=== PATIENT | male | born 1980 | race Caucasian/White ===

== ENCOUNTER 2018-01-20 15:38 | Inpatient (IN) ==
[2018-01-20] MEDS ORDERED: 0.9 % Sodium Chloride 1,000 ML IVC ONE ×2 (15:58→17:08)
[2018-01-20] MEDS ORDERED: Ondansetron 4 MG/2 ML VIAL IVP ONE (15:58)
[2018-01-20] MEDS ORDERED: *HR* FentaNYL (PF) 100 MCG/2 ML VIAL IVP ONE (16:15)
--- NOTE | 2018-01-20 16:15 | Emergency Department Note ---
Disposition Clinical Impression: Hyperglycemia, Hyperkalemia, Acute kidney injury DKA (diabetic ketoacidoses) Qualifiers: Diabetes mellitus complication detail: without coma Pharyngitis Qualifiers: Pharyngitis/tonsillitis etiology: unspecified etiology Qualified Code(s): J02.9 - Acute pharyngitis, unspecified Disposition: Admitted As Inpatient Condition: Serious Referrals: NONE,PCP [Primary Care Provider] - Forms: ED Satisfaction Letter General Adult HPI - General Chief complaint: ED Nausea/Vomiting/Diarrhea Stated complaint: Sore throat, vomiting, hyperglycemia Time Seen by Provider: 01/20/18 15:46 Source: patient Limitations: no limitations Nursing Notes Reviewed: Yes Vital Signs Reviewed: Yes - History of Present Illness HPI Narrative: 37-year-old male with a past medical history of diabetes (on metformin) and hypertension. He reports having 3-4 days of sore throat. He found that orange juice helped significantly with the pain in his throat and so he drank 3 gallons over the last 48 hours. He now reports that his blood glucose is reading "high". He has not noticed that he is urinating more than normal. He is having no difficulty breathing or chest pain. He is having difficulty keeping anything down due to his nausea and vomiting. He is not having any abdominal pain. No fever. Radiation: non-radiation Pain Severity: severe Pain Scale: 8 Consistency: constant Improves with: nothing Worsens with: nothing Associated symptoms: Reports: denies other symptoms Treatments Prior to Arrival: none - Related Data Home Medications Medication Instructions Recorded Confirmed Lisinopril [Zestril] 20 mg PO DAILY 03/21/17 03/21/17 metFORMIN 100 mg PO BID 03/21/17 03/21/17 Previous Rx's Medication Instructions Recorded Ibuprofen [Motrin] 600 mg PO Q6HR PRN #20 tab 03/21/17 Allergies Allergy/AdvReac Type Severity Reaction Status Date / Time No Known Allergies Allergy Verified 01/20/18 15:53 All systems ED: reviewed and negative except as stated. Constitutional: Denies: fever ENT ED: Reports: throat pain Cardiovascular: Denies: chest pain Respiratory: Denies: cough Gastrointestinal: Reports: nausea, vomiting. Denies: abdominal pain, diarrhea Genitourinary: Denies: dysuria Musculoskeletal: Denies: back pain Integumentary: Denies: rash Endocrine: Reports: fatigue Past Medical History - Past Medical History Medical history: Reports: diabetes, hypertension Psychiatric history: Reports: no psych history - Social History Smoking Status: Never smoker Smokeless Tobacco Status: No Alcohol use: Reports: occasionally Drug use: Reports: none Physical Exam - General Limitations: no limitations General appearance: alert - Head Head exam: atraumatic - Eye Eye exam: Present: normal appearance, PERRL - ENT ENT exam: other (Diffuse erythematous oropharynx. No exudate. No uvular deviation. No muffled voice) - Neck Neck exam: Present: normal inspection, trachea midline - Chest Chest inspection: Present: normal inspection - Respiratory Respiratory exam: Present: normal lung sounds bilaterally. Absent: respiratory distress - Cardiovascular Cardiovascular exam: Present: normal rhythm, tachycardia - Abdominal Exam Abdominal exam: Present: soft, Non-Tender - Extremities Exam Extremities exam: Present: normal inspection - Neurological Exam Neurological exam: Present: alert, oriented X3 - Skin Skin exam: Present: warm, dry Course Course Narrative: Glucose came back very elevated as stated his potassium. EKG was obtained which does not show any acute changes however I decided to give him calcium gluconate due to the level of the potassium elevation. His creatinine is 4 and will hopefully rebound with fluid administration. His pH also indicates he is acidotic and there is significant amount of ketones which gives the diagnosis of DKA. He received 2 L of normal saline and was placed on 200 and also an hour maintenance and an insulin drip was started. CT scan was obtained of the abdomen and pelvis and the neck to rule out pancreatic pseudocyst as his lipase is elevated, and paratonsillar abscess. Clinically there is not an abscess, but this was obtained due to the critical nature of the patient as this is essential to be treated to fix his DKA if present. Sodium is quite low that this is due to a significant elevation of his glucose and is a pseudohyponatremia. Negative CT of abdomen and neck. Signed out to the night team for final admission pending call from hospitalist. Vital Signs Temperature 97.6 F 01/20/18 15:39 Pulse Rate 117 01/20/18 15:39 Respiratory Rate 22 01/20/18 15:39 Blood Pressure 116/72 01/20/18 15:39 O2 Sat by Pulse Oximetry 100 01/20/18 15:39 Temperature 97.6 F 01/20/18 15:57 Pulse Rate 101 01/20/18 17:00 Respiratory Rate 20 01/20/18 17:00 Blood Pressure 97/41 01/20/18 17:00 O2 Sat by Pulse Oximetry 100 01/20/18 17:00 Oxygen Delivery Oxygen Delivery Room Air Medical Decision Making - Medical Records Medical records reviewed: Yes I reviewed the patient's medical records. - Lab Data Lab results reviewed: Yes I reviewed the patient's lab results. Result diagrams: 01/20/18 15:58 01/20/18 15:59 Lab Results 01/20/18 01/20/18 01/20/18 Range/Units 15:44 15:45 15:58 WBC 23.9 H (4.3-11.1) K/mcL RBC 4.77 (4.19-5.50) M/mcL Hgb 14.3 (12.9-16.9) g/dL Hct 48.0 (37.5-50.1) % MCV 100.6 H (83.0-100.0) fL MCH 30.0 (28.0-33.3) pg MCHC 29.8 L (31.6-35.5) g/dL RDW 13.7 (11.5-14.5) % Plt Count 635 H (140-400) K/mcL MPV 10.8 (9.4-12.4) fL Immature Gran % 1.7 (0-4) % Seg Neutrophils % 88.1 % Lymphocytes % 4.0 % Monocytes % 5.8 % Eosinophils % 0.0 % Basophils % 0.4 % Neutrophils # 21.1 H (1.6-8.9) K/mcL Lymphocytes # 1.0 (0.6-4.6) K/mcL Monocytes # 1.4 H (0.0-1.3) K/mcL Eosinophils # 0.0 (0.0-0.6) K/mcL Basophils # 0.1 (0.0-0.2) K/mcL Platelet Estimate Marked Increase H (Normal) VBG pH (7.32-7.42) pH Units VBG pCO2 (41-51) mmHg VBG pO2 (25-50) mmHg VBG HCO3 (21-27) mEq/L Sodium (136-145) mEq/L Potassium (3.5-5.1) mEq/L Chloride (98-107) mEq/L Carbon Dioxide (23-29) mEq/L BUN (6-20) mg/dL Creatinine (0.70-1.30) mg/dL Est GFR ( Amer) (> 60) Est GFR (Non-Af Amer) (> 60) BUN/Creatinine Ratio (6-26) Glucose (70-105) mg/dL POC Glucose > 600 H* > 600 H* (70-99) mg/dL Est Mean Plasma Glucose mg/dl Hemoglobin A1c ( - 5.6) % Calculated Osmolality (280-300) Calcium (8.6-10.3) mg/dL Total Bilirubin (0.3-1.0) mg/dL Direct Bilirubin (0.0-0.2) mg/dL Indirect Bilirubin (0.0-1.2) mg/dL AST (13-39) Units/L ALT (7-52) Units/L Alkaline Phosphatase (34-104) Units/L Serum Total Protein (6.4-8.9) g/dL Albumin (3.5-5.7) g/dL Globulin (2.4-3.5) g/dL Albumin/Globulin Ratio (1.1-2.2) Lipase (11-82) Units/L Beta-Hydroxybutyric Acd (0.02-0.27) mmol/L Urine Color (Yellow) Urine Clarity (Clear) Urine pH (5.0-8.0) pH Units Ur Specific [place] (1.010-1.025) Urine Protein (Neg-Trace) mg/dL Urine Glucose (UA) (Normal) mg/dL Urine Ketones (Negative) mg/dL Urine Blood (Negative) Urine Nitrite (Negative) Urine Bilirubin (Negative) Urine Urobilinogen (Normal) mg/dL Ur Leukocyte Esterase (Negative) Urine Microscopic RBC (0-3) per hpf Urine Microscopic WBC (0-3) per hpf Ur Squamous Epith Cells (None-Few) per lpf Urine Bacteria (None-Few) per hpf Hyaline Casts (None-Few) per lpf Ur Culture Indicated? (NO) Person Notif of Crit 01/20/18 01/20/18 01/20/18 Range/Units 15:59 16:27 16:43 WBC (4.3-11.1) K/mcL RBC (4.19-5.50) M/mcL Hgb (12.9-16.9) g/dL Hct (37.5-50.1) % MCV (83.0-100.0) fL MCH (28.0-33.3) pg MCHC (31.6-35.5) g/dL RDW (11.5-14.5) % Plt Count (140-400) K/mcL MPV (9.4-12.4) fL Immature Gran % (0-4) % Seg Neutrophils % % Lymphocytes % % Monocytes % % Eosinophils % % Basophils % % Neutrophils # (1.6-8.9) K/mcL Lymphocytes # (0.6-4.6) K/mcL Monocytes # (0.0-1.3) K/mcL Eosinophils # (0.0-0.6) K/mcL Basophils # (0.0-0.2) K/mcL Platelet Estimate (Normal) VBG pH (7.32-7.42) pH Units VBG pCO2 (41-51) mmHg VBG pO2 (25-50) mmHg VBG HCO3 (21-27) mEq/L Sodium 115 L* (136-145) mEq/L Potassium 7.4 H* (3.5-5.1) mEq/L Chloride 72 L (98-107) mEq/L Carbon Dioxide 7 L* (23-29) mEq/L BUN 74 H (6-20) mg/dL Creatinine 4.00 H (0.70-1.30) mg/dL Est GFR ( Amer) 21 L (> 60) Est GFR (Non-Af Amer) 17 L (> 60) BUN/Creatinine Ratio 19 (6-26) Glucose 1642 H* (70-105) mg/dL POC Glucose (70-99) mg/dL Est Mean Plasma Glucose mg/dl Hemoglobin A1c ( - 5.6) % Calculated Osmolality 348 H (280-300) Calcium 9.4 (8.6-10.3) mg/dL Total Bilirubin 0.6 (0.3-1.0) mg/dL Direct Bilirubin 0.1 (0.0-0.2) mg/dL Indirect Bilirubin 0.5 (0.0-1.2) mg/dL AST 8 L (13-39) Units/L ALT 18 (7-52) Units/L Alkaline Phosphatase 93 (34-104) Units/L Serum Total Protein 7.2 (6.4-8.9) g/dL Albumin 4.2 (3.5-5.7) g/dL Globulin 3.0 (2.4-3.5) g/dL Albumin/Globulin Ratio 1.4 (1.1-2.2) Lipase 323 H (11-82) Units/L Beta-Hydroxybutyric Acd > 2.00 H (0.02-0.27) mmol/L Urine Color Yellow (Yellow) Urine Clarity Clear (Clear) Urine pH 5.5 (5.0-8.0) pH Units Ur Specific [place] 1.028 H (1.010-1.025) Urine Protein 30 H (Neg-Trace) mg/dL Urine Glucose (UA) >=1000 H (Normal) mg/dL Urine Ketones 40 H (Negative) mg/dL Urine Blood Trace H (Negative) Urine Nitrite Negative (Negative) Urine Bilirubin Negative (Negative) Urine Urobilinogen Normal (Normal) mg/dL Ur Leukocyte Esterase Negative (Negative) Urine Microscopic RBC 0-3 (0-3) per hpf Urine Microscopic WBC 5-15 H (0-3) per hpf Ur Squamous Epith Cells Moderate H (None-Few) per lpf Urine Bacteria None Seen (None-Few) per hpf Hyaline Casts None Seen (None-Few) per lpf Ur Culture Indicated? NO (NO) Person Notif of Crit 01/20/18 01/20/18 Range/Units 17:02 17:49 WBC (4.3-11.1) K/mcL RBC (4.19-5.50) M/mcL Hgb (12.9-16.9) g/dL Hct (37.5-50.1) % MCV (83.0-100.0) fL MCH (28.0-33.3) pg MCHC (31.6-35.5) g/dL RDW (11.5-14.5) % Plt Count (140-400) K/mcL MPV (9.4-12.4) fL Immature Gran % (0-4) % Seg Neutrophils % % Lymphocytes % % Monocytes % % Eosinophils % % Basophils % % Neutrophils # (1.6-8.9) K/mcL Lymphocytes # (0.6-4.6) K/mcL Monocytes # (0.0-1.3) K/mcL Eosinophils # (0.0-0.6) K/mcL Basophils # (0.0-0.2) K/mcL Platelet Estimate (Normal) VBG pH 7.06 L* (7.32-7.42) pH Units VBG pCO2 29 L (41-51) mmHg VBG pO2 67 H (25-50) mmHg VBG HCO3 8 L (21-27) mEq/L Sodium (136-145) mEq/L Potassium (3.5-5.1) mEq/L Chloride (98-107) mEq/L Carbon Dioxide (23-29) mEq/L BUN (6-20) mg/dL Creatinine (0.70-1.30) mg/dL Est GFR ( Amer) (> 60) Est GFR (Non-Af Amer) (> 60) BUN/Creatinine Ratio (6-26) Glucose (70-105) mg/dL POC Glucose (70-99) mg/dL Est Mean Plasma Glucose 329 mg/dl Hemoglobin A1c 13.1 H ( - 5.6) % Calculated Osmolality (280-300) Calcium (8.6-10.3) mg/dL Total Bilirubin (0.3-1.0) mg/dL Direct Bilirubin (0.0-0.2) mg/dL Indirect Bilirubin (0.0-1.2) mg/dL AST (13-39) Units/L ALT (7-52) Units/L Alkaline Phosphatase (34-104) Units/L Serum Total Protein (6.4-8.9) g/dL Albumin (3.5-5.7) g/dL Globulin (2.4-3.5) g/dL Albumin/Globulin Ratio (1.1-2.2) Lipase (11-82) Units/L Beta-Hydroxybutyric Acd (0.02-0.27) mmol/L Urine Color (Yellow) Urine Clarity (Clear) Urine pH (5.0-8.0) pH Units Ur Specific [place] (1.010-1.025) Urine Protein (Neg-Trace) mg/dL Urine Glucose (UA) (Normal) mg/dL Urine Ketones (Negative) mg/dL Urine Blood (Negative) Urine Nitrite (Negative) Urine Bilirubin (Negative) Urine Urobilinogen (Normal) mg/dL Ur Leukocyte Esterase (Negative) Urine Microscopic RBC (0-3) per hpf Urine Microscopic WBC (0-3) per hpf Ur Squamous Epith Cells (None-Few) per lpf Urine Bacteria (None-Few) per hpf Hyaline Casts (None-Few) per lpf Ur Culture Indicated? (NO) Person Notif of Crit Dr. Olivarez - Radiology Data Radiology results reviewed: Yes I reviewed the patient's radiology results. - EKG Data EKG #1 EKG attestation: Yes I reviewed and interpreted this EKG. EKG shows normal: sinus rhythm Rate: normal Rhythm: NSR Interpretation: other (nonspecific ekg. No ST elevation or t wave changes.)
[2018-01-20] MEDS ORDERED: Isovue-370 500 ML INFUS..BTL IV ONE (16:42)
[2018-01-20 16:56] LABS: Bacteria,Urine None Seen per hpf (None-Few); Bilirubin,Urine Negative (Negative); Blood,Urine Trace (Negative); Clarity,Urine Clear (Clear); Color,Urine Yellow (Yellow); Glucose,Urine (UA) >=1000 mg/dL (Normal); Hyaline Casts,Urine None Seen per lpf (None-Few); Ketones,Urine 40 mg/dL (Negative); Leukocyte Esterase,Urine Negative (Negative); Nitrite,Urine Negative (Negative); PH,Urine 5.5 pH Units (5.0-8.0); Protein,Urine 30 mg/dL (Neg-Trace); RBC,Urine 0-3 per hpf (0-3); Specific Gravity,Urine 1.028 (1.010-1.025); Squamous Epithelial Cell,Urine Moderate per lpf (None-Few); Urobilinogen,Urine Normal (Normal)
--- NOTE | 2018-01-20 16:59 | Emergency Department Note ---
Disposition Clinical Impression: Hyperglycemia Disposition: Still a Patient Forms: ED Satisfaction Letter General Adult HPI - General Chief complaint: ED Nausea/Vomiting/Diarrhea Stated complaint: Sore throat, vomiting, hyperglycemia Time Seen by Provider: 01/20/18 15:46 Source: patient Limitations: no limitations - History of Present Illness Pain Scale: 8 Improves with: nothing Worsens with: nothing Associated symptoms: Reports: denies other symptoms Treatments Prior to Arrival: none - Related Data Home Medications Medication Instructions Recorded Confirmed Lisinopril [Zestril] 20 mg PO DAILY 03/21/17 03/21/17 metFORMIN 100 mg PO BID 03/21/17 03/21/17 Previous Rx's Medication Instructions Recorded Ibuprofen [Motrin] 600 mg PO Q6HR PRN #20 tab 03/21/17 Allergies Allergy/AdvReac Type Severity Reaction Status Date / Time No Known Allergies Allergy Verified 01/20/18 15:53 Constitutional: Denies: fever ENT ED: Reports: throat pain Cardiovascular: Denies: chest pain Respiratory: Denies: cough Gastrointestinal: Reports: nausea, vomiting. Denies: abdominal pain, diarrhea Genitourinary: Denies: dysuria Musculoskeletal: Denies: back pain Integumentary: Denies: rash Endocrine: Reports: fatigue Past Medical History - Past Medical History Medical history: Reports: diabetes, hypertension Psychiatric history: Reports: no psych history - Social History Smoking Status: Never smoker Smokeless Tobacco Status: No Alcohol use: Reports: occasionally Drug use: Reports: none Physical Exam - General Limitations: no limitations General appearance: alert Course Vital Signs Temperature 97.6 F 01/20/18 15:39 Pulse Rate 117 01/20/18 15:39 Respiratory Rate 22 01/20/18 15:39 Blood Pressure 116/72 01/20/18 15:39 O2 Sat by Pulse Oximetry 100 01/20/18 15:39 Temperature 97.6 F 01/20/18 15:57 Pulse Rate 97 01/20/18 16:30 Respiratory Rate 20 01/20/18 16:30 Blood Pressure 110/66 01/20/18 16:30 O2 Sat by Pulse Oximetry 99 01/20/18 16:30 Oxygen Delivery Oxygen Delivery Room Air Medical Decision Making - Lab Data Lab Results 01/20/18 01/20/18 Range/Units 15:44 15:45 POC Glucose > 600 H* > 600 H* (70-99) mg/dL Attestation Statement - Attestation Attestation: I examined this patient and my medical decision-making was reviewed with the Resident Physician. I agree with the documented findings, disposition and treatment plan as described except to the extent set forth below. 37 year old male presents to the ED with complanits of sore throat and diabetes which is controlled with metfomrin and has been dealing with a sore throat and most recently drank 3 galloons of orange juice in the past three days. PAtinet states that it has been getting wrose and has been experincing dificulty with swallowing but is otherwise able to tolerte his own secretions.WE will do a DKA workup.
[2018-01-20 17:03] LABS: Basophils # 0.1 K/mcL (0.0-0.2); Basophils % 0.4 %; Hemoglobin 14.3 g/dL (12.9-16.9); Immature Granulocytes % 1.7 % (0-4); Mean Corpuscular HGB Conc 29.8 g/dL (31.6-35.5); Mean Corpuscular Volume 100.6 fL (83.0-100.0); Mean Platelet Volume 10.8 fL (9.4-12.4); Monocytes # 1.4 K/mcL (0.0-1.3); Monocytes % 5.8 %; Neutrophils # 21.1 K/mcL (1.6-8.9); Platelet Count 635 K/mcL (140-400); Red Blood Count 4.77 M/mcL (4.19-5.50); Red Cell Distribution Width 13.7 % (11.5-14.5); Segmented Neutrophils % 88.1 %
[2018-01-20 17:10] LABS: VBG HCO3 8 mEq/L (21-27); VBG PCO2 29 mmHg (41-51); VBG PH 7.06 pH Units (7.32-7.42); VBG PO2 67 mmHg (25-50)
[2018-01-20 17:37] LABS: Albumin 4.2 g/dL (3.5-5.7); Albumin/Globulin Ratio 1.4 (1.1-2.2); Bilirubin,Direct 0.1 mg/dL (0.0-0.2); Bilirubin,Indirect 0.5 mg/dL (0.0-1.2); Bilirubin,Total 0.6 mg/dL (0.3-1.0); Calcium 9.4 mg/dL (8.6-10.3); Total Protein 7.2 g/dL (6.4-8.9)
[2018-01-20 17:38] LABS: Platelet Estimate Marked Increase (Normal)
[2018-01-20] MEDS ORDERED: Magic Mouthwash 10 ML UD Cup PO ONE (17:48)
[2018-01-20] MEDS ORDERED: *HR* Dextrose 50 % in Water (Syg) 50 ML SYRINGE IVP PRN ×2 (17:49→20:28)
[2018-01-20 18:14] LABS: Estimated Average Glucose 329 mg/dl; Hemoglobin A1C 13.1 %
[2018-01-20] MEDS: 0.9 % Sodium Chloride 1,000 ML IVC SCH ×4 (19:13→23:46)
[2018-01-20] MEDS: Insulin Human Regular 100 UNIT in 0.9 % Sodium Chloride 100 ML IVC SCH (19:16)
[2018-01-20] MEDS ORDERED: *HR* OxyCODONE/APAP 5/325 TABLET PO ONE (19:23)
--- NOTE | 2018-01-20 19:27 | Emergency Department Note ---
START Narrative - START START: 19:20 - Received patient in sign-out from Dr. Marino. This is a 37 year-old male with history of IDDM. who presents with ST. He drank an extraordinary amount of orange juice over the past couple of days, as it apparently made his throat feel vic. He presented with profound hyperglycemia and was found to be in DKA. He has received 2 liters of saline and is on an insulin drip. Reviewed case with Dr. Vanessa. He requests a repeat BMP to make sure potassium is trending down, which has been ordered, and he has accepted patient for admission the ICU.
--- NOTE | 2018-01-20 20:23 | Internal Med History&Physical ---
Date of Encounter: 01/20/18 Time of Encounter: 19:45 Internal Medicine - H&P: HPI Chief complaint: Sore throat, malaise, nausea and vomiting Admitted From: Emergency Dept Plans for Post Hospital Care: Home History of present illness: Mr. Najera is a 37 year old male patient with a history of diabetes mellitus who presented to the ER with complaints of sore throat along with nausea. He has been feeling sick for about 2-3 days now and was drinking a lot of orange juice and soda at this with his throat. He has been having increased urination and has also been feeling nauseated. He denies any fever or chills. Denies any hematemesis. No chest pain or palpitations. He has only had one episode of diabetic ketoacidosis before that and that was when he was diagnosed with diabetes. He reports that he has been compliant with his medication regimen for diabetes and his A1c last checked couple of months back was 7%. He has not previously been diagnosed with any kidney disease related to his diabetes. Past Med Surg Social Fam HX - Past Medical History Attestation: Yes The following information was validated with the patient. Source: patient Medical history: diabetes, hypertension Psychiatric history: no psych history - Social History Smoking Status: Never smoker Smokeless Tobacco Status: No Alcohol use: occasionally Drug use: none - Additional Family History Additional family history: Reviewed and found to be noncontributory at this time Internal Medicine - H&P: Meds Lisinopril [Zestril] 20 mg PO DAILY 01/20/18 [History] metFORMIN [Glucophage] 500 mg PO BID 01/20/18 [History] 3 Allergy/AdvReac Type Severity Reaction Status Date / Time No Known Allergies Allergy Verified 01/20/18 15:53 All Systems PM: A 10-system review of systems was performed and is negative for pertinent findings except as documented above in the HPI. - Constitutional Constitutional: malaise, no chills, no fever(s), no night sweats - EENT Eyes: no change in vision, no discharge, no pain, no photophobia Ears: no ear discharge, no ear pain, no tinnitus Nose, mouth and throat: sore throat, no dysphagia, no nasal discharge, no neck pain - Cardiovascular Cardiovascular ROS IM: no chest pain, no diaphoresis, no dyspnea, no lightheadedness, no palpitations, no syncope - Respiratory Respiratory: no cough, no dyspnea, no wheezing, no excessive phlegm production - Gastrointestinal Gastrointestinal: no abdominal pain, no diarrhea, no hematemesis, no hematochezia, no melena, no nausea, no vomiting - Musculoskeletal Musculoskeletal ROS IM: no numbness, no tingling - Integumentary Integumentary IM: no rash, no unusual bruising - Neurological Neurological ROS: no confusion, no convulsions, no focal weakness, no numbness, no tingling, no tremor(s) - Hematologic/Lymphatic Hematologic/Lymphatic: no easy bruising - Constitutional Vitals: Temp Pulse Resp BP Pulse Ox 97.6 F 104 20 110/74 100 01/20/18 15:57 01/20/18 19:20 01/20/18 20:08 01/20/18 20:08 01/20/18 19:20 General appearance: Present: cooperative, mild distress, A&O X 3, pleasant, obese, answers questions appropriately - Eye Eye exam: Present: EOMI, PERRL, conjuntiva pink, sclera anicteric - ENT ENT exam: Present: mucous membranes moist - Neck Neck exam general surgery: Present: supple, trachea midline. Absent: lymphadenopathy - Respiratory Respiratory exam: Present: CTAB. Absent: accessory muscle use, rales, rhonchi, wheezes - Cardiovascular Cardiovascular exam: Present: RRR, +S1, +S2. Absent: diastolic murmur, gallop, rubs, systolic murmur - GI/Abdominal GI/Abdominal exam: Present: normal bowel sounds, soft, no peritoneal signs. Absent: distended, tenderness - Extremities Exam Extremities exam: Present: warm, radial pulses palpable and symmetrical. Absent : calf tenderness, cyanotic, pedal edema - Neurological Exam Neurological exam: Present: CN II-XII intact, oriented X3, no focal deficits. Absent: facial droop, speech deficit - Skin Skin exam: Present: dry, intact Internal Med - H&P Results - Labs CBC & Chem 7: 01/20/18 15:58 01/20/18 15:59 - Assessment and plan (1) DKA (diabetic ketoacidoses) Current Visit: Yes Status: Acute Assessment and plan: Patient with severe diabetic ketoacidosis. We will admit to ICU. Place patient on DKA protocol with IV insulin, IV fluids. Monitor basic panel closely. High risk for complications. Likely related to increased consumption of orange juice with underlying pharyngitis Qualifiers: Diabetes mellitus type: type 2 Diabetes mellitus complication detail: without coma Qualified Code(s): E11.10 - Type 2 diabetes mellitus with ketoacidosis without coma (2) Acute kidney injury Current Visit: Yes Status: Acute Assessment and plan: Severe acute kidney injury. Patient may have underlying chronic kidney disease based on his lab work. We will monitor renal function closely closely. Monitor input and output. If renal function does not improve we will consult nephrology. Aggressive hydration. (3) Hyperkalemia Current Visit: Yes Status: Acute Assessment and plan: severe hyperkalemia. Potassium 7.4 initially. Will recheck values. Aggressive management for DKA. (4) Pharyngitis Current Visit: Yes Status: Acute Assessment and plan: Strep screen negative. We will place patient on Unasyn for now given his leukocytosis. Qualifiers: Pharyngitis/tonsillitis etiology: unspecified etiology Qualified Code(s): J02.9 - Acute pharyngitis, unspecified - Time Spent With Patient Total time spent is greater than 50% in coordination of care (as documented) at patient's floor/unit and/or counseling patient:
[2018-01-20] MEDS ORDERED: D5% in 0.45% NACL 1,000 ML IVC PRN (20:28)
[2018-01-20] MEDS ORDERED: D5% in 0.45% NACL w KCl 20 MEQ/1,000 ML MLS IVC PRN (20:28)
[2018-01-20] MEDS ORDERED: Naloxone 0.4 MG/ML INJ IVP PRN (20:28)
[2018-01-20] MEDS ORDERED: *HR* HYDROcodone/Acet 5/325 mg TABLET PO PRN (20:28)
[2018-01-20] MEDS ORDERED: Albuterol 2.5 MG/3 ML NEBULIZER IH ONE (20:37)
[2018-01-20 20:40] LABS: Calcium 8.9 mg/dL (8.6-10.3); Potassium 7.5 mEq/L (3.5-5.1)
[2018-01-20] MEDS ORDERED: Ondansetron 4 MG/2 ML VIAL ONE (21:00)
[2018-01-20] MEDS: Ondansetron 4 MG/2 ML VIAL IVP PRN (21:07)
[2018-01-20 21:30] LABS: Potassium 7.4 mEq/L (3.5-5.1)
[2018-01-20 21:41] LABS: ABG Base Excess -16 mEq/L (-2 to 3); ABG HCO3 9 mEq/L (21-27); ABG Oxygen Saturation 85 % (95-98); ABG PCO2 20 mmHg (35-45); ABG PH 7.26 pH Units (7.32-7.45); ABG PO2 56 mmHg (85-104); ABG TCO2 10 mEq/L (20-26)
[2018-01-20 22:36] LABS: Calcium 8.9 mg/dL (8.6-10.3)
[2018-01-20] MEDS ORDERED: 0.9 % Sodium Chloride w KCl 20 MEQ/1,000 ML MLS IVC ONE (22:51)
--- NOTE | 2018-01-20 22:53 | Procedure Note ---
Date of procedure: 01/20/18 Pre-op diagnosis: hypotension Post-op diagnosis: same Procedure: RIJ CVC under ultrasound guidance Anesthesia: local Was there an account management assistant present: No Estimated blood loss (cc): 1 Specimen: none Pathology: none sent Condition: stable Disposition: ICU Procedures - Central Line Placement Right IJ Central Line Inserted*: Yes Central Line Catheter Replacement*: No Central Line Insertion: emergent Consent Obtained: verbal consent, written consent Procedural Pause: verify patient name and date of , timeout performed per policy, myrna and assess the site, assemble equipment and verify supplies, perform hand hygiene Patient Placed on Monitor/Pulse Ox: Yes During the Procedure: clinician is wearing sterile gloves, cap, mask,& gown during insertion, sterile field and sterile technique are maintained, patient's face is covered with drape or mask and wearing a cap, everyone in room is wearing a mask Central Line Prep: Chlorhexidine scrub Prep the Procedure Site: apply chloraprep to the skin using a back and forth scrubbing motion, apply chloraprep for 30 seconds (upper body), 1-2 min ( femoral sites), allow prep to dry, drape the patient with a full body drape Local Anesthetic: lidocaine 1% Amount of anesthesia used (mL): 3 Ultrasound Used for Placement: Yes Central Line Lumen Inserted: triple Post Procedure: sutured in place, good blood return, all ports aspirated, flushed, capped, sterile dressing applied, guide wire removed and visualized, dressing is dated Post Procedure X-Ray: tip of catheter in good position, no pneumothorax seen Patient Tolerated Procedure: well, no complications Complications: none, catheter malposition (a 20 cm CVC was accidently placed, will exchange for 16 cm with guidewire exchange) Name of Clinician Inserting Central Line: Saroj Feldman DO Clinician Assisting/Completing Checklist: Dr. Vanessa Date: 01/20/18 Time: 22:52 Additional Comments: RIJ CVC placed under ultrasound guidance for persistent hypotension despite aggressive fluid resuscitation. Informed consent obtained by patient. He was alert awake and oriented. Performed under the direct supervision of Dr. Vanessa.
[2018-01-20] MEDS: 0.9 % Sodium Chloride w KCl 20 MEQ/1,000 ML MLS IVC SCH (22:59)
--- NOTE | 2018-01-20 23:21 | Procedure Note ---
Date of procedure: 01/20/18 Pre-op diagnosis: hypotension Post-op diagnosis: same Procedure: RIJ CVC guidewire exchange for 16 cm triple lumen catheter Was there an speech therapy assistant present: No Estimated blood loss (cc): 0 Specimen: none Pathology: none sent Condition: stable Disposition: ICU Procedures - Central Line Placement Right IJ Central Line Inserted*: Yes Central Line Catheter Replacement*: Yes Central Line Insertion: emergent Consent Obtained: written consent Procedural Pause: verify patient name and date of , timeout performed per policy, myrna and assess the site, assemble equipment and verify supplies, perform hand hygiene Patient Placed on Monitor/Pulse Ox: Yes During the Procedure: clinician is wearing sterile gloves, cap, mask,& gown during insertion, sterile field and sterile technique are maintained, patient's face is covered with drape or mask and wearing a cap, everyone in room is wearing a mask Central Line Prep: Chlorhexidine scrub Prep the Procedure Site: apply chloraprep to the skin using a back and forth scrubbing motion, apply chloraprep for 30 seconds (upper body), 1-2 min ( femoral sites), allow prep to dry, drape the patient with a full body drape Ultrasound Used for Placement: No Central Line Lumen Inserted: triple Post Procedure: sutured in place, good blood return, all ports aspirated, flushed, capped, sterile dressing applied, guide wire removed and visualized, dressing is dated Post Procedure X-Ray: tip of catheter in good position, no pneumothorax seen Patient Tolerated Procedure: well, no complications Complications: none Name of Clinician Inserting Central Line: Saroj Feldman DO Clinician Assisting/Completing Checklist: Dr. Vanessa Date: 01/20/18 Time: 23:16 Additional Comments: Initial CVC was 20 cm triple lumen catheter, after review of CXR it was discovered that incorrect length CVC catheter was placed and guidewire exchange performed. Area was cleaned with chloroprep including the existing triple lumen catheter and under drape and sterile technique the catheter was grasp near the circular biopatch and cut with scissor. Catheter was maintained and the guidewire was placed through lumen until catheter successfully removed while maintaining control of triple lumen catheter. Once catheter was removed replacement 16 cm CVC catheter was exchanged without difficulty. It was sutured into placed with biopatch. Supervised by attending Dr. Vanessa. Patient tolerated procedure well.
[2018-01-20] MEDS ORDERED: Chloraseptic Spray 177 ML BOTTLE MM PRN (23:27)
[2018-01-20] MEDS: Acetaminophen 325 MG TABLET PO PRN (23:31)
[2018-01-20] MEDS: Norepinephrine 4 MG in D5% in Water 250 ML IVC SCH (23:33)
--- NOTE | 2018-01-20 23:42 | Event Note ---
Date of Encounter: 01/20/18 Time of Encounter: 23:00 Patient's blood pressure has been low despite aggressive IV hydration. Likely is due to circulatory shock due to continued acidosis. Patient will need IV pressors. As such central line was placed by resident physician, Saroj Feldman under my supervision. Patient was started on levophed. Blood glucose improving slowly. Potassium levels are also improving. Continue IV fluids.
[2018-01-21] MEDS: Ampicillin/Sulbactam 1,500 MG in 0.9 % Sodium Chloride Mini Bag 100 ML IVPB SCH ×3 (00:20→11:10)
[2018-01-21] MEDS: Insulin Human Regular 100 UNIT in 0.9 % Sodium Chloride 100 ML IVC SCH (00:20)
[2018-01-21] MEDS: 0.9 % Sodium Chloride 1,000 ML IVC SCH (00:35)
[2018-01-21 00:42] LABS: Calcium 8.8 mg/dL (8.6-10.3); Potassium 4.2 mEq/L (3.5-5.1)
[2018-01-21] MEDS: 0.9 % Sodium Chloride w KCl 20 MEQ/1,000 ML MLS IVC SCH ×11 (01:25→19:37)
[2018-01-21] MEDS: 0.45 % Sodium Chloride w/KCl 20 MEQ/1,000 ML MLS IVC SCH ×6 (01:25→20:59)
[2018-01-21 02:04] LABS: Calcium 9.1 mg/dL (8.6-10.3); Potassium 4.5 mEq/L (3.5-5.1)
[2018-01-21 03:18] LABS: Hematocrit 38.8 % (37.5-50.1); Hemoglobin 13.8 g/dL (12.9-16.9); Mean Corpuscular HGB Conc 35.6 g/dL (31.6-35.5); Platelet Count 541 K/mcL (140-400); Red Cell Distribution Width 13.3 % (11.5-14.5)
[2018-01-21 03:22] LABS: Mean Corpuscular Volume 84.3 fL (83.0-100.0)
[2018-01-21 03:40] LABS: Calcium 9.3 mg/dL (8.6-10.3); Potassium 4.4 mEq/L (3.5-5.1)
[2018-01-21] MEDS: *HR* Heparin 5,000 UNIT/ML VIAL SQ SCH ×2 (05:08→17:40)
[2018-01-21] MEDS: Norepinephrine 4 MG in D5% in Water 250 ML IVC SCH (05:56)
[2018-01-21] MEDS: Ondansetron 4 MG/2 ML VIAL IVP PRN ×2 (06:15→12:36)
[2018-01-21 06:41] LABS: Calcium 9.5 mg/dL (8.6-10.3); Potassium 4.6 mEq/L (3.5-5.1)
[2018-01-21] MEDS ORDERED: Ringers Solution, Lactated 3,000 ML ONE (07:42)
[2018-01-21] MEDS ORDERED: Ringers Solution, Lactated 3,000 ML IVC ONE (08:07)
--- NOTE | 2018-01-21 09:37 | Pulmonology Consult Note ---
<Soy Ramey - Last Filed: 01/21/18 10:36> Date of Encounter: 01/21/18 Time of Encounter: 07:30 Assessment and Plan (1) DKA (diabetic ketoacidoses) Current Visit: Yes Status: Acute 1. Patient in DKA, initially with serum ketones > 2, pH 7.09 with AG 36 with BG 1642. 2. His gap is now 16 and blood glucose was 328 3. Continue insulin drip at 0.1 units per kilogram per hour until anion gap and acidosis had resolved 4. Patient remains significantly volume depleted and is 2.5 L negative 5. We will give a 3 L LR fluid bolus and continue the patient on LR at 250 mL per hour 6. Continue to monitor electrolytes closely Q2 hr per protocol Qualifiers: Diabetes mellitus type: type 2 Diabetes mellitus complication detail: without coma Qualified Code(s): E11.10 - Type 2 diabetes mellitus with ketoacidosis without coma (2) Hyperkalemia Current Visit: Yes Status: Acute 1. Potassium has normalized now, but still suspecting that this is a pseudohyperkalemia due to the patient's DKA and overall volume depleted state. 2. We will change the patient to LR to continue replacing his potassium and to minimize the acidotic effects of normal saline. 3. Continue to trend K (3) Pharyngitis Current Visit: Yes Status: Acute 1. Complaining of a sore throat, strep negative. 2. Primary team started on Unasyn due to leukocytosis, which we are suspecting is likely a stress reaction from his DKA 3. No evidence of infection - discontinue antibiotics Qualifiers: Pharyngitis/tonsillitis etiology: unspecified etiology Qualified Code(s): J02.9 - Acute pharyngitis, unspecified (4) Acute kidney injury Current Visit: Yes Status: Acute 1. Most recent creatinine 1.99, which is improved from 4.0 upon arrival 2. Suspecting his EKATERINA is due to dehydration and significant volume depletion from his DKA 3. Continue to trend with IV fluid resuscitation. (5) DVT prophylaxis Current Visit: Yes Status: Acute 1. Continue subcutaneous heparin History of Present Illness Consult date: 01/21/18 Requesting physician: Nicolas Vanessa Reason for consult: other (hypotension/DKA) Chief complaint: hypotension/DKA/acidosis History of present illness: Patient presented in DKA and was acidotic with a pH of 7.09. Was on the DKA pathway and became hypotensive requiring central line placement and vasopressors. Consulted for further management of his hypotension and DKA. Past Med Surg Social Fam HX - Past Medical History Medical history: diabetes, hypertension Additional medical history: Drug abuse- recovering Psychiatric history: no psych history - Past Surgical History Additional surgical history: Lung biopsy. - Social History Smoking Status: Never smoker Smokeless Tobacco Status: No Alcohol use: occasionally Drug use: none Medications and Allergies Lisinopril [Zestril] 20 mg PO DAILY 01/20/18 [History] metFORMIN [Glucophage] 500 mg PO BID 01/20/18 [History] 3 Allergy/AdvReac Type Severity Reaction Status Date / Time No Known Allergies Allergy Verified 01/20/18 15:53 All Systems: The remainder of the systems were reviewed and are negative - Constitutional Constitutional: no fever(s) - EENT Nose, mouth and throat: no dry mouth, no headache(s) - Cardiovascular Cardiovascular: no chest pain - Respiratory Respiratory: no dyspnea - Gastrointestinal Gastrointestinal: nausea, no abdominal pain, no cramping, no melena - Genitourinary Genitourinary: no dysuria - Musculoskeletal Musculoskeletal: no muscle weakness - Neurological Neurological: no dizziness Physical Examination Vital Signs: Vital Signs, Last 4 Hours Temp Pulse Resp BP Pulse Ox 01/21/18 08:53 100 12 116/68 97 01/21/18 08:35 97.9 F 01/21/18 07:57 110 01/21/18 07:55 97.9 F 101 15 112/51 97 01/21/18 07:00 100 14 121/52 95 01/21/18 06:00 106 16 127/73 100 General appearance: no acute distress Eyes: nonicteric ENT: oropharynx dry Neck: supple Effort: normal Inspection: normal Cardiovascular: regular rate and rhythm Gastrointestinal: normoactive bowel sounds, non-distended Integumentary: normal Extremities: no cyanosis, no edema, no clubbing Musculoskeletal: no deformities, ROM normal normal mental status, non-focal exam mood appropriate, affect normal Results - Laboratory Findings CBC and BMP: 01/21/18 03:05 01/21/18 05:03 ABG ABG pH 7.26 pH Units (7.32-7.45) L 01/20/18 21:38 ABG pCO2 20 mmHg (35-45) L* 01/20/18 21:38 ABG pO2 56 mmHg (85-104) L 01/20/18 21:38 ABG O2 Saturation 85 % (95-98) L 01/20/18 21:38 Abnormal lab findings: Abnormal lab results WBC 21.8 K/mcL (4.3-11.1) H 01/21/18 03:05 MCHC 35.6 g/dL (31.6-35.5) H 01/21/18 03:05 Plt Count 541 K/mcL (140-400) H 01/21/18 03:05 Neutrophils # 21.1 K/mcL (1.6-8.9) H 01/20/18 15:58 Monocytes # 1.4 K/mcL (0.0-1.3) H 01/20/18 15:58 Platelet Estimate Marked Increase (Normal) H 01/20/18 15:58 ABG pH 7.26 pH Units (7.32-7.45) L 01/20/18 21:38 ABG pCO2 20 mmHg (35-45) L* 01/20/18 21:38 ABG pO2 56 mmHg (85-104) L 01/20/18 21:38 ABG HCO3 9 mEq/L (21-27) L 01/20/18 21:38 ABG Total CO2 10 mEq/L (20-26) L 01/20/18 21:38 ABG O2 Saturation 85 % (95-98) L 01/20/18 21:38 ABG Base Excess -16 mEq/L (-2 to 3) L 01/20/18 21:38 VBG pH 7.06 pH Units (7.32-7.42) L* 01/20/18 17:02 VBG pCO2 29 mmHg (41-51) L 01/20/18 17:02 VBG pO2 67 mmHg (25-50) H 01/20/18 17:02 VBG HCO3 8 mEq/L (21-27) L 01/20/18 17:02 Carbon Dioxide 18 mEq/L (23-29) L 01/21/18 05:03 BUN 54 mg/dL (6-20) H 01/21/18 05:03 Creatinine 1.99 mg/dL (0.70-1.30) H 01/21/18 05:03 Est GFR ( Amer) 46 (> 60) L 01/21/18 05:03 Est GFR (Non-Af Amer) 38 (> 60) L 01/21/18 05:03 BUN/Creatinine Ratio 27 (6-26) H 01/21/18 05:03 Glucose 502 mg/dL (70-105) H* 01/21/18 05:03 POC Glucose 328 mg/dL (70-99) H 01/21/18 08:51 Hemoglobin A1c 13.1 % (-5.6) H 01/20/18 17:49 Calculated Osmolality 325 (280-300) H 01/21/18 05:03 AST 8 Units/L (13-39) L 01/20/18 15:59 Lipase 323 Units/L (11-82) H 01/20/18 15:59 Beta-Hydroxybutyric Acd > 2.00 mmol/L (0.02-0.27) H 01/20/18 16:43 Ur Specific [place] 1.028 (1.010-1.025) H 01/20/18 16:27 Urine Protein 30 mg/dL (Neg-Trace) H 01/20/18 16:27 Urine Glucose (UA) >=1000 mg/dL (Normal) H 01/20/18 16:27 Urine Ketones 40 mg/dL (Negative) H 01/20/18 16:27 Urine Blood Trace (Negative) H 01/20/18 16:27 Urine Microscopic WBC 5-15 per hpf (0-3) H 01/20/18 16:27 Ur Squamous Epith Cells Moderate per lpf (None-Few) H 01/20/18 16:27 - Clinical Findings Intake & Output: Intake & Output 01/20/18 01/21/18 01/21/18 23:59 07:59 15:59 Intake Total 1000 / 2110 2586 / 2586 90 Output Total 875 / 875 5200 / 5200 Balance 125 / 1235 -2614 / -2614 Consult Discharge Plan - Plan Referrals: NONE,PCP [Primary Care Provider] - <Oli Meade - Last Filed: 01/21/18 11:54> Date of Encounter: 01/21/18 All Systems: The remainder of the systems were reviewed and are negative Physical Examination Vital Signs: Vital Signs, Last 4 Hours Temp Pulse Resp BP Pulse Ox 01/21/18 11:00 112 16 133/83 99 01/21/18 09:57 100 13 116/86 98 01/21/18 08:53 100 12 116/68 97 01/21/18 08:35 97.9 F 01/21/18 07:57 110 01/21/18 07:55 97.9 F 101 15 112/51 97 Results - Laboratory Findings CBC and BMP: 01/21/18 03:05 01/21/18 10:00 ABG ABG pH 7.26 pH Units (7.32-7.45) L 01/20/18 21:38 ABG pCO2 20 mmHg (35-45) L* 01/20/18 21:38 ABG pO2 56 mmHg (85-104) L 01/20/18 21:38 ABG O2 Saturation 85 % (95-98) L 01/20/18 21:38 Abnormal lab findings: Abnormal lab results WBC 21.8 K/mcL (4.3-11.1) H 01/21/18 03:05 MCHC 35.6 g/dL (31.6-35.5) H 01/21/18 03:05 Plt Count 541 K/mcL (140-400) H 01/21/18 03:05 Neutrophils # 21.1 K/mcL (1.6-8.9) H 01/20/18 15:58 Monocytes # 1.4 K/mcL (0.0-1.3) H 01/20/18 15:58 Platelet Estimate Marked Increase (Normal) H 01/20/18 15:58 ABG pH 7.26 pH Units (7.32-7.45) L 01/20/18 21:38 ABG pCO2 20 mmHg (35-45) L* 01/20/18 21:38 ABG pO2 56 mmHg (85-104) L 01/20/18 21:38 ABG HCO3 9 mEq/L (21-27) L 01/20/18 21:38 ABG Total CO2 10 mEq/L (20-26) L 01/20/18 21:38 ABG O2 Saturation 85 % (95-98) L 01/20/18 21:38 ABG Base Excess -16 mEq/L (-2 to 3) L 01/20/18 21:38 VBG pH 7.06 pH Units (7.32-7.42) L* 01/20/18 17:02 VBG pCO2 29 mmHg (41-51) L 01/20/18 17:02 VBG pO2 67 mmHg (25-50) H 01/20/18 17:02 VBG HCO3 8 mEq/L (21-27) L 01/20/18 17:02 Chloride 108 mEq/L (98-107) H 01/21/18 10:00 Carbon Dioxide 18 mEq/L (23-29) L 01/21/18 10:00 BUN 39 mg/dL (6-20) H 01/21/18 10:00 Creatinine 1.51 mg/dL (0.70-1.30) H 01/21/18 10:00 Est GFR (Non-Af Amer) 52 (> 60) L 01/21/18 10:00 Glucose 353 mg/dL (70-105) H 01/21/18 10:00 POC Glucose 297 mg/dL (70-99) H 01/21/18 11:15 Hemoglobin A1c 13.1 % (-5.6) H 01/20/18 17:49 Calculated Osmolality 316 (280-300) H 01/21/18 10:00 AST 8 Units/L (13-39) L 01/20/18 15:59 Lipase 323 Units/L (11-82) H 01/20/18 15:59 Beta-Hydroxybutyric Acd > 2.00 mmol/L (0.02-0.27) H 01/20/18 16:43 Ur Specific [place] 1.028 (1.010-1.025) H 01/20/18 16:27 Urine Protein 30 mg/dL (Neg-Trace) H 01/20/18 16:27 Urine Glucose (UA) >=1000 mg/dL (Normal) H 01/20/18 16:27 Urine Ketones 40 mg/dL (Negative) H 01/20/18 16:27 Urine Blood Trace (Negative) H 01/20/18 16:27 Urine Microscopic WBC 5-15 per hpf (0-3) H 01/20/18 16:27 Ur Squamous Epith Cells Moderate per lpf (None-Few) H 01/20/18 16:27 - Clinical Findings Intake & Output: Intake & Output 01/20/18 01/21/18 01/21/18 23:59 07:59 15:59 Intake Total 1000 / 2110 2586 / 2586 590 / 590 Output Total 875 / 875 5200 / 5200 1999 Balance 125 / 1235 -2614 / -2614 -1410 / -1410 - Attending Attestation I examined this patient and my medical decision-making was reviewed with the Resident Physician. I agree with the documented findings, disposition and treatment plan as described except to the extent set forth below. Patient seen and examined. Labs, radiology, chart personally reviewed. 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 GI: Nutrition per dietary and GI prophylaxis per routine Heme: DVT prophylaxis per routine ID: Continue antibiotics and plan to de-escalation Renal; urine out put and renal funtion reviewed. Replace electrolyte. Endorcine: blood glucose is monitored. Patient will be treated based on DKA protocol Lines: all lines checked and no evidence of infections Skin: skin care to prevent pressure ulcers per nursing routine care Patient will need diabetic education
[2018-01-21 10:41] LABS: BUN/Creatinine Ratio 26 (6-26); Blood Urea Nitrogen 39 mg/dL (6-20); Calcium 8.9 mg/dL (8.6-10.3); Carbon Dioxide 18 mEq/L (23-29); Chloride 108 mEq/L (98-107); Glucose 353 mg/dL (70-105); Osmolality,Calculated 316 (280-300); Potassium 4.8 mEq/L (3.5-5.1); Sodium 141 mEq/L (136-145); eGFR For African Americans > 60 (> 60); eGFR For Non-African Americans 52 (> 60)
[2018-01-21] MEDS ORDERED: Ringers Solution, Lactated 1,000 ML ONE (10:57)
[2018-01-21] MEDS: Nystatin SUSP 5 ML UD.LIQ PO SCH ×3 (11:10→21:01)
[2018-01-21] MEDS: Ringers Solution, Lactated 1,000 ML IVC SCH ×3 (11:18→17:01)
[2018-01-21] MEDS ORDERED: *HR* Promethazine 25 MG/ML VIAL IVP PRN (15:28)
[2018-01-21 15:31] LABS: BUN/Creatinine Ratio 26 (6-26); Blood Urea Nitrogen 33 mg/dL (6-20); Calcium 8.9 mg/dL (8.6-10.3); Carbon Dioxide 22 mEq/L (23-29); Chloride 109 mEq/L (98-107); Glucose 240 mg/dL (70-105); Osmolality,Calculated 307 (280-300); Potassium 3.9 mEq/L (3.5-5.1); Sodium 141 mEq/L (136-145); eGFR For African Americans > 60 (> 60); eGFR For Non-African Americans > 60 (> 60)
--- NOTE | 2018-01-21 17:23 | Electrocardiograph Report ---
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
[2018-01-21] MEDS: Insulin DETEMIR 100 UNIT/ML X5UNITS SQ SCH ×2 (17:39→20:58)
[2018-01-21] MEDS: Insulin LISPRO 300 UNITS/3 ML VIAL SQ SCH (17:40)
[2018-01-21] MEDS: Acetaminophen 325 MG TABLET PO PRN ×2 (17:45→21:03)
[2018-01-21] MEDS ORDERED: Insulin DETEMIR 100 UNIT/ML X5UNITS SQ SCH (21:00)
[2018-01-21] MEDS ORDERED: Insulin LISPRO 300 UNITS/3 ML VIAL SQ SCH (21:00)
[2018-01-22] MEDS: Ringers Solution, Lactated 1,000 ML IVC SCH ×3 (00:17→06:33)
[2018-01-22] MEDS: 0.9 % Sodium Chloride w KCl 20 MEQ/1,000 ML MLS IVC SCH ×3 (00:17→06:33)
[2018-01-22] MEDS: 0.45 % Sodium Chloride w/KCl 20 MEQ/1,000 ML MLS IVC SCH ×2 (00:17→06:31)
[2018-01-22] MEDS: *HR* Heparin 5,000 UNIT/ML VIAL SQ SCH ×2 (06:31→16:46)
[2018-01-22] MEDS: Acetaminophen 325 MG TABLET PO PRN ×2 (08:05→16:44)
[2018-01-22] MEDS: Insulin LISPRO 300 UNITS/3 ML VIAL SQ SCH ×3 (08:05→16:45)
[2018-01-22] MEDS: Nystatin SUSP 5 ML UD.LIQ PO SCH ×4 (08:06→21:43)
[2018-01-22 08:11] LABS: Basophils # 0.1 K/mcL (0.0-0.2); Basophils % 0.4 %; Eosinophils # 0.2 K/mcL (0.0-0.6); Eosinophils % 1.5 %; Hematocrit 36.4 % (37.5-50.1); Hemoglobin 12.6 g/dL (12.9-16.9); Immature Granulocytes % 0.4 % (0-4); Lymphocytes # 1.4 K/mcL (0.6-4.6); Lymphocytes % 10.3 %; Mean Corpuscular HGB Conc 34.6 g/dL (31.6-35.5); Mean Corpuscular Hemoglobin 30.4 pg (28.0-33.3); Mean Corpuscular Volume 87.9 fL (83.0-100.0); Mean Platelet Volume 9.7 fL (9.4-12.4); Monocytes # 1.2 K/mcL (0.0-1.3); Monocytes % 8.5 %; Neutrophils # 10.9 K/mcL (1.6-8.9); Platelet Count 364 K/mcL (140-400); Red Blood Count 4.14 M/mcL (4.19-5.50); Red Cell Distribution Width 14.3 % (11.5-14.5); Segmented Neutrophils % 78.9 %
[2018-01-22 08:24] LABS: BUN/Creatinine Ratio 21 (6-26); Blood Urea Nitrogen 22 mg/dL (6-20); Calcium 8.4 mg/dL (8.6-10.3); Carbon Dioxide 17 mEq/L (23-29); Chloride 102 mEq/L (98-107); Glucose 239 mg/dL (70-105); Osmolality,Calculated 289 (280-300); Potassium 4.4 mEq/L (3.5-5.1); Sodium 134 mEq/L (136-145); eGFR For African Americans > 60 (> 60); eGFR For Non-African Americans > 60 (> 60)
--- NOTE | 2018-01-22 09:38 | Pulmonology Progress Note ---
<BobbyadoreOli everett M - Last Filed: 01/22/18 09:49> Date of Encounter: 01/22/18 Objective PUL Vital signs: Last Vital Signs Temp 98.1 F 01/22/18 07:52 Pulse 94 01/22/18 08:15 Resp 18 01/22/18 08:15 BP 151/89 01/22/18 08:15 Pulse Ox 99 01/22/18 08:15 Results - Laboratory Findings CBC and BMP: 01/22/18 07:50 01/22/18 07:50 ABG ABG pH 7.26 pH Units (7.32-7.45) L 01/20/18 21:38 ABG pCO2 20 mmHg (35-45) L* 01/20/18 21:38 ABG pO2 56 mmHg (85-104) L 01/20/18 21:38 ABG O2 Saturation 85 % (95-98) L 01/20/18 21:38 Abnormal lab findings: Abnormal lab results WBC 13.8 K/mcL (4.3-11.1) H 01/22/18 07:50 RBC 4.14 M/mcL (4.19-5.50) L 01/22/18 07:50 Hgb 12.6 g/dL (12.9-16.9) L 01/22/18 07:50 Hct 36.4 % (37.5-50.1) L 01/22/18 07:50 Neutrophils # 10.9 K/mcL (1.6-8.9) H 01/22/18 07:50 Platelet Estimate Marked Increase (Normal) H 01/20/18 15:58 ABG pH 7.26 pH Units (7.32-7.45) L 01/20/18 21:38 ABG pCO2 20 mmHg (35-45) L* 01/20/18 21:38 ABG pO2 56 mmHg (85-104) L 01/20/18 21:38 ABG HCO3 9 mEq/L (21-27) L 01/20/18 21:38 ABG Total CO2 10 mEq/L (20-26) L 01/20/18 21:38 ABG O2 Saturation 85 % (95-98) L 01/20/18 21:38 ABG Base Excess -16 mEq/L (-2 to 3) L 01/20/18 21:38 VBG pH 7.06 pH Units (7.32-7.42) L* 01/20/18 17:02 VBG pCO2 29 mmHg (41-51) L 01/20/18 17:02 VBG pO2 67 mmHg (25-50) H 01/20/18 17:02 VBG HCO3 8 mEq/L (21-27) L 01/20/18 17:02 Sodium 134 mEq/L (136-145) L 01/22/18 07:50 Carbon Dioxide 17 mEq/L (23-29) L 01/22/18 07:50 BUN 22 mg/dL (6-20) H 01/22/18 07:50 Glucose 239 mg/dL (70-105) H 01/22/18 07:50 POC Glucose 240 mg/dL (70-99) H 01/22/18 07:35 Hemoglobin A1c 13.1 % (-5.6) H 01/20/18 17:49 Calcium 8.4 mg/dL (8.6-10.3) L 01/22/18 07:50 AST 8 Units/L (13-39) L 01/20/18 15:59 Lipase 323 Units/L (11-82) H 01/20/18 15:59 Beta-Hydroxybutyric Acd > 2.00 mmol/L (0.02-0.27) H 01/20/18 16:43 Ur Specific [place] 1.028 (1.010-1.025) H 01/20/18 16:27 Urine Protein 30 mg/dL (Neg-Trace) H 01/20/18 16:27 Urine Glucose (UA) >=1000 mg/dL (Normal) H 01/20/18 16:27 Urine Ketones 40 mg/dL (Negative) H 01/20/18 16:27 Urine Blood Trace (Negative) H 01/20/18 16:27 Urine Microscopic WBC 5-15 per hpf (0-3) H 01/20/18 16:27 Ur Squamous Epith Cells Moderate per lpf (None-Few) H 01/20/18 16:27 - Clinical Findings Intake & Output: Intake & Output 01/21/18 01/22/18 01/22/18 23:59 07:59 15:59 Intake Total 2254 / 2254 474 / 474 480 / 480 Output Total 2750 / 2750 1200 / 1200 Balance -496 / -496 -726 / -726 480 / 480 Weight 131.5 kg Consult Discharge Plan - Plan Referrals: NONE,PCP [Primary Care Provider] - - Attending Attestation I examined this patient and my medical decision-making was reviewed with the Resident Physician. I agree with the documented findings, disposition and treatment plan as described except to the extent set forth below. Patient seen and examined. Labs, radiology, chart personally reviewed. Agree with resident's history and physical, assessment, plan with following comments: DOCUMENT IMAGING SPECIALIST: Patient follows commands, Pulmonary: Acceptable oxygenation and ventilation Cardiovascular: stable GI: Nutrition per dietary and GI prophylaxis per routine Heme: DVT prophylaxis per routine Renal; urine out put and renal funtion reviewed Endorcine: blood glucose is monitored. Patient DKA has resolved and offered him diabetic education, he declined. Lines: all lines checked and no evidence of infections Skin: skin care to prevent pressure ulcers per nursing routine care Patient to be transferred out of ICU. <Soy Ramey - Last Filed: 01/22/18 09:51> Date of Encounter: 01/22/18 Time of Encounter: 07:15 Assessment and Plan (1) DKA (diabetic ketoacidoses) Current Visit: Yes Status: Acute 1. Resolved, AG is closed and is now 15 2. Glucose has been < 250 on SSI/Levimir 3. Will transfer to floor today for further management and diabetes education 4. Continue IVF until adequate PO Qualifiers: Diabetes mellitus type: type 2 Diabetes mellitus complication detail: without coma Qualified Code(s): E11.10 - Type 2 diabetes mellitus with ketoacidosis without coma (2) Hyperkalemia Current Visit: Yes Status: Acute 1. Resolved, as expected, after resuscitation and adequate insulin (3) Pharyngitis Current Visit: Yes Status: Acute 1. Strep negative, still c/o pain 2. 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 Patient does have a h/o opioid dependence and had been clean for several years, but was given 2 Percocet in the ER. He has been asking for "something stronger" and Tylenol. Would strongly recommend alternative therapies to opioids. Qualifiers: Pharyngitis/tonsillitis etiology: unspecified etiology Qualified Code(s): J02.9 - Acute pharyngitis, unspecified (4) Acute kidney injury Current Visit: Yes Status: Acute (5) DVT prophylaxis Current Visit: Yes Status: Acute Subjective Principal diagnosis: DKA, hypotension Interval history: Patient admitted to the ICU for DKA and hypotension, placed on the bed. Patient was born completed and after adequate volume resuscitation was able to be weaned off vasopressors. His anion gap closed yesterday and he was transitioned from an insulin drip to subcutaneous insulin and sliding scale. He continues to do well, mental status is normal, no complaints at this time other than a continued sore throat which is improving. Plan to transfer out of ICU today. Patient does admit that he has not been checking his blood sugars over the last several years and did have a new primary care physician who told him everything looked okay, but his hemoglobin A1c was very elevated. Objective PUL Vital signs: Last Vital Signs Temp 98.1 F 01/22/18 07:52 Pulse 94 01/22/18 08:15 Resp 18 01/22/18 08:15 BP 151/89 01/22/18 08:15 Pulse Ox 99 01/22/18 08:15 General appearance: no acute distress, alert Eyes: nonicteric ENT: oropharynx moist Neck: supple Effort: normal Auscultation: bilateral: clear Cardiovascular: regular rate and rhythm Gastrointestinal: normoactive bowel sounds, non-distended Integumentary: normal Extremities: no cyanosis Musculoskeletal: no deformities, ROM normal normal mental status, non-focal exam mood appropriate, affect normal Results - Laboratory Findings CBC and BMP: 01/22/18 07:50 01/22/18 07:50 ABG ABG pH 7.26 pH Units (7.32-7.45) L 01/20/18 21:38 ABG pCO2 20 mmHg (35-45) L* 01/20/18 21:38 ABG pO2 56 mmHg (85-104) L 01/20/18 21:38 ABG O2 Saturation 85 % (95-98) L 01/20/18 21:38 Abnormal lab findings: Abnormal lab results WBC 13.8 K/mcL (4.3-11.1) H 01/22/18 07:50 RBC 4.14 M/mcL (4.19-5.50) L 01/22/18 07:50 Hgb 12.6 g/dL (12.9-16.9) L 01/22/18 07:50 Hct 36.4 % (37.5-50.1) L 01/22/18 07:50 Neutrophils # 10.9 K/mcL (1.6-8.9) H 01/22/18 07:50 Platelet Estimate Marked Increase (Normal) H 01/20/18 15:58 ABG pH 7.26 pH Units (7.32-7.45) L 01/20/18 21:38 ABG pCO2 20 mmHg (35-45) L* 01/20/18 21:38 ABG pO2 56 mmHg (85-104) L 01/20/18 21:38 ABG HCO3 9 mEq/L (21-27) L 01/20/18 21:38 ABG Total CO2 10 mEq/L (20-26) L 01/20/18 21:38 ABG O2 Saturation 85 % (95-98) L 01/20/18 21:38 ABG Base Excess -16 mEq/L (-2 to 3) L 01/20/18 21:38 VBG pH 7.06 pH Units (7.32-7.42) L* 01/20/18 17:02 VBG pCO2 29 mmHg (41-51) L 01/20/18 17:02 VBG pO2 67 mmHg (25-50) H 01/20/18 17:02 VBG HCO3 8 mEq/L (21-27) L 01/20/18 17:02 Sodium 134 mEq/L (136-145) L 01/22/18 07:50 Carbon Dioxide 17 mEq/L (23-29) L 01/22/18 07:50 BUN 22 mg/dL (6-20) H 01/22/18 07:50 Glucose 239 mg/dL (70-105) H 01/22/18 07:50 POC Glucose 240 mg/dL (70-99) H 01/22/18 07:35 Hemoglobin A1c 13.1 % (-5.6) H 01/20/18 17:49 Calcium 8.4 mg/dL (8.6-10.3) L 01/22/18 07:50 AST 8 Units/L (13-39) L 01/20/18 15:59 Lipase 323 Units/L (11-82) H 01/20/18 15:59 Beta-Hydroxybutyric Acd > 2.00 mmol/L (0.02-0.27) H 01/20/18 16:43 Ur Specific [place] 1.028 (1.010-1.025) H 01/20/18 16:27 Urine Protein 30 mg/dL (Neg-Trace) H 01/20/18 16:27 Urine Glucose (UA) >=1000 mg/dL (Normal) H 01/20/18 16:27 Urine Ketones 40 mg/dL (Negative) H 01/20/18 16:27 Urine Blood Trace (Negative) H 01/20/18 16:27 Urine Microscopic WBC 5-15 per hpf (0-3) H 01/20/18 16:27 Ur Squamous Epith Cells Moderate per lpf (None-Few) H 01/20/18 16:27 - Clinical Findings Intake & Output: Intake & Output 01/21/18 01/22/18 01/22/18 23:59 07:59 15:59 Intake Total 2254 / 2254 474 / 474 480 / 480 Output Total 2750 / 2750 1200 / 1200 Balance -496 / -496 -726 / -726 480 / 480 Weight 131.5 kg
[2018-01-22] MEDS ORDERED: Naloxone 0.4 MG/ML INJ IVP PRN (10:32)
[2018-01-22] MEDS ORDERED: *HR* Dextrose 50 % in Water (Syg) 50 ML SYRINGE IVP PRN (10:32)
[2018-01-22] MEDS ORDERED: Chloraseptic Spray 177 ML BOTTLE MM PRN (10:32)
[2018-01-22] MEDS ORDERED: Ringers Solution, Lactated 1,000 ML IVC SCH (10:32)
[2018-01-22] MEDS: *HR* Metformin 500 MG TABLET PO SCH (16:44)
[2018-01-22] MEDS ORDERED: Insulin DETEMIR 100 UNIT/ML X5UNITS SQ SCH ×2 (21:00)
[2018-01-22] MEDS ORDERED: Insulin LISPRO 300 UNITS/3 ML VIAL SQ SCH (21:00)
[2018-01-22] MEDS: *HR* Promethazine 25 MG/ML VIAL IVP PRN (21:43)
[2018-01-23] MEDS: *HR* Heparin 5,000 UNIT/ML VIAL SQ SCH ×2 (05:18→18:09)
[2018-01-23] MEDS: Acetaminophen 325 MG TABLET PO PRN (08:17)
[2018-01-23] MEDS: Ondansetron 4 MG/2 ML VIAL IVP PRN ×2 (08:17→20:45)
[2018-01-23] MEDS: Lisinopril 20 MG TABLET PO SCH (08:17)
[2018-01-23] MEDS: *HR* Metformin 500 MG TABLET PO SCH (08:17)
[2018-01-23] MEDS: Insulin LISPRO 300 UNITS/3 ML VIAL SQ SCH ×4 (08:18→20:45)
[2018-01-23] MEDS: Nystatin SUSP 5 ML UD.LIQ PO SCH ×4 (08:18→20:45)
[2018-01-23 09:09] LABS: Basophils # 0.1 K/mcL (0.0-0.2); Basophils % 0.7 %; Eosinophils # 0.1 K/mcL (0.0-0.6); Hematocrit 38.4 % (37.5-50.1); Hemoglobin 12.9 g/dL (12.9-16.9); Immature Granulocytes % 2.1 % (0-4); Lymphocytes # 1.8 K/mcL (0.6-4.6); Mean Corpuscular HGB Conc 33.6 g/dL (31.6-35.5); Mean Corpuscular Hemoglobin 28.8 pg (28.0-33.3); Mean Corpuscular Volume 85.7 fL (83.0-100.0); Mean Platelet Volume 9.5 fL (9.4-12.4); Monocytes # 0.9 K/mcL (0.0-1.3); Neutrophils # 8.3 K/mcL (1.6-8.9); Platelet Count 317 K/mcL (140-400); Red Blood Count 4.48 M/mcL (4.19-5.50); Red Cell Distribution Width 13.6 % (11.5-14.5); Segmented Neutrophils % 72.2 %
[2018-01-23 09:38] LABS: BUN/Creatinine Ratio 18 (6-26); Blood Urea Nitrogen 16 mg/dL (6-20); Calcium 8.6 mg/dL (8.6-10.3); Carbon Dioxide 14 mEq/L (23-29); Chloride 98 mEq/L (98-107); Glucose 296 mg/dL (70-105); Osmolality,Calculated 280 (280-300); Potassium 4.3 mEq/L (3.5-5.1); Sodium 129 mEq/L (136-145); eGFR For African Americans > 60 (> 60); eGFR For Non-African Americans > 60 (> 60)
[2018-01-23] MEDS ORDERED: Insulin Regular, Human 100 UNIT/ML IV ONE ×2 (10:23→10:45)
[2018-01-23] MEDS ORDERED: D5% in 0.45% NACL w KCl 20 MEQ/1,000 ML MLS IVC PRN (10:23)
[2018-01-23] MEDS ORDERED: *HR* Dextrose 50 % in Water (Syg) 50 ML SYRINGE IVP PRN ×2 (10:23→16:51)
[2018-01-23] MEDS ORDERED: Insulin Regular, Human 100 UNIT/ML IV PRN (10:23)
[2018-01-23] MEDS ORDERED: 0.9 % Sodium Chloride 1,000 ML IVC ONE (10:28)
[2018-01-23] MEDS ORDERED: Insulin Human Regular 100 UNIT in 0.9 % Sodium Chloride 100 ML IVC SCH (10:30)
[2018-01-23] MEDS ORDERED: 0.9 % Sodium Chloride w KCl 20 MEQ/1,000 ML MLS IVC SCH (10:30)
[2018-01-23] MEDS ORDERED: Insulin Human Regular 8 UNIT in 0.9 % Sodium Chloride 10 ML IV ONE (11:00)
[2018-01-23] MEDS ORDERED: Insulin DETEMIR 100 UNIT/ML X5UNITS SQ SCH ×2 (11:09→21:00)
[2018-01-23 11:15] LABS: VBG HCO3 15 mEq/L (21-27); VBG PCO2 27 mmHg (41-51); VBG PH 7.35 pH Units (7.32-7.42); VBG PO2 155 mmHg (25-50)
[2018-01-23 11:50] LABS: BUN/Creatinine Ratio 19 (6-26); Blood Urea Nitrogen 16 mg/dL (6-20); Calcium 8.8 mg/dL (8.6-10.3); Carbon Dioxide 15 mEq/L (23-29); Chloride 100 mEq/L (98-107); Glucose 217 mg/dL (70-105); Osmolality,Calculated 280 (280-300); Potassium 4.2 mEq/L (3.5-5.1); Sodium 131 mEq/L (136-145); eGFR For African Americans > 60 (> 60); eGFR For Non-African Americans > 60 (> 60)
[2018-01-23] MEDS: *HR* Promethazine 25 MG/ML VIAL IVP PRN (13:58)
--- NOTE | 2018-01-23 15:20 | Internal Med Progress Note ---
<Robe Rios - Last Filed: 01/23/18 15:18> Date of Encounter: 01/23/18 Time of Encounter: 15:18 - Assessment and plan (1) DKA (diabetic ketoacidoses) Current Visit: Yes Status: Acute Assessment and plan: Patient initially completed insulin drip treatment for DKA which had initially resolved and patient was transferred out of the ICU. This morning his sugar was noted to be over 300 and on labs she was found to have an anion gap metabolic acidosis with bicarbonate 14 likely indicative the patient going back into DKA. IV fluid bolus was given and IV insulin infusion was restarted. Repeat BMP later that morning showed slight improvement in the patient's anion gap metabolic acidosis. Repeat pending. Sugar has normalized. Once acidosis resolves we will transition back to subcutaneous insulin, with 30 units of Levemir daily and 10 units preprandial with sliding scale coverage. Qualifiers: Diabetes mellitus type: type 2 Diabetes mellitus complication detail: without coma Qualified Code(s): E11.10 - Type 2 diabetes mellitus with ketoacidosis without coma (2) Hyperkalemia Current Visit: Yes Status: Acute Assessment and plan: Secondary to DKA, resolved. Continue monitor. (3) Pharyngitis Current Visit: Yes Status: Acute Assessment and plan: Strep screen negative. Likely viral, continue supportive care Qualifiers: Pharyngitis/tonsillitis etiology: unspecified etiology Qualified Code(s): J02.9 - Acute pharyngitis, unspecified (4) Acute kidney injury Current Visit: Yes Status: Resolved Assessment and plan: Likely prerenal in the setting of DKA and severe dehydration. Resolved after aggressive fluid hydration. Continue monitor renal function. - Time Spent With Patient Total time spent is greater than 50% in coordination of care (as documented) at patient's floor/unit and/or counseling patient: - Subjective Interval history: Patient seen and examined at bedside. Patient states that he feels okay today, he reports mild nausea and mild abdominal pain. He states that he is hungry. He reports sore throat that is improving. Denies fever, chills, chest pain or shortness of breath. - Constitutional Vitals: Temp Pulse Resp BP Pulse Ox 98.3 F 93 18 138/79 97 01/23/18 11:15 01/23/18 11:15 01/23/18 11:15 01/23/18 11:15 01/23/18 11:15 General appearance: Present: cooperative, A&O X 3, pleasant, obese, answers questions appropriately - Respiratory Respiratory exam: Present: CTAB. Absent: rales, rhonchi, wheezes - Cardiovascular Cardiovascular exam: Present: tachycardia. Absent: gallop, rubs, systolic murmur - GI/Abdominal GI/Abdominal exam: Present: soft, tenderness (mild, diffuse). Absent: distended - Extremities Exam Extremities exam: Present: warm. Absent: pedal edema, tenderness - Neurological Exam Neurological exam: Present: alert, CN II-XII intact, oriented X3, no focal deficits Internal Medicine: Result - Labs CBC & Chem 7: 01/23/18 08:54 01/23/18 10:45 Labs: Short CBC 01/23/18 Range/Units 08:54 WBC 11.5 H (4.3-11.1) K/mcL Hgb 12.9 (12.9-16.9) g/dL Hct 38.4 (37.5-50.1) % Plt Count 317 (140-400) K/mcL Neutrophils # 8.3 (1.6-8.9) K/mcL BMP 01/23/18 01/23/18 08:54 10:45 Sodium 129 L 131 L Potassium 4.3 4.2 Chloride 98 100 Carbon Dioxide 14 L 15 L BUN 16 16 Creatinine 0.88 0.86 Glucose 296 H 217 H Calcium 8.6 8.8 - ABG Interpretation ABG results: ABG ABG pH 7.26 pH Units (7.32-7.45) L 01/20/18 21:38 ABG pCO2 20 mmHg (35-45) L* 01/20/18 21:38 ABG pO2 56 mmHg (85-104) L 01/20/18 21:38 ABG O2 Saturation 85 % (95-98) L 01/20/18 21:38 Consult Discharge Plan - Plan Referrals: NONE,PCP [Primary Care Provider] - <Konrad Carranza - Last Filed: 01/23/18 18:52> Date of Encounter: 01/23/18 - Assessment and plan (1) DKA (diabetic ketoacidoses) Current Visit: Yes Status: Acute Qualifiers: Diabetes mellitus type: type 2 Diabetes mellitus complication detail: without coma Qualified Code(s): E11.10 - Type 2 diabetes mellitus with ketoacidosis without coma (2) Hyperkalemia Current Visit: Yes Status: Acute (3) Pharyngitis Current Visit: Yes Status: Acute Qualifiers: Pharyngitis/tonsillitis etiology: unspecified etiology Qualified Code(s): J02.9 - Acute pharyngitis, unspecified (4) Acute kidney injury Current Visit: Yes Status: Resolved - Time Spent With Patient Total time spent is greater than 50% in coordination of care (as documented) at patient's floor/unit and/or counseling patient: - Constitutional Vitals: Temp Pulse Resp BP Pulse Ox 98.9 F 86 16 137/79 95 01/23/18 15:59 01/23/18 15:59 01/23/18 15:59 01/23/18 15:59 01/23/18 15:59 Internal Medicine: Result - Labs CBC & Chem 7: 01/23/18 08:54 01/23/18 15:06 Labs: Short CBC 01/23/18 Range/Units 08:54 WBC 11.5 H (4.3-11.1) K/mcL Hgb 12.9 (12.9-16.9) g/dL Hct 38.4 (37.5-50.1) % Plt Count 317 (140-400) K/mcL Neutrophils # 8.3 (1.6-8.9) K/mcL BMP 01/23/18 01/23/18 01/23/18 08:54 10:45 15:06 Sodium 129 L 131 L 134 L Potassium 4.3 4.2 4.5 Chloride 98 100 105 Carbon Dioxide 14 L 15 L 14 L BUN 16 16 14 Creatinine 0.88 0.86 0.76 Glucose 296 H 217 H 89 Calcium 8.6 8.8 8.6 - ABG Interpretation ABG results: ABG ABG pH 7.26 pH Units (7.32-7.45) L 01/20/18 21:38 ABG pCO2 20 mmHg (35-45) L* 01/20/18 21:38 ABG pO2 56 mmHg (85-104) L 01/20/18 21:38 ABG O2 Saturation 85 % (95-98) L 01/20/18 21:38 - Attending Attestation I examined this patient and my medical decision-making was reviewed with the Resident Physician on 01/23/18. I agree with the documented findings, disposition and treatment plan as described except to the extent set forth below. Mr Najera is currently admitted for acute DKA. He remains moderate to high risk due to potential for worsening clinical status. Mr Najera had anion gap this AM Restarted on insulin drip. Improving. No new symptoms. Exam Alert Comfortable Mucus membranes dry Heart not tachy No wheeze I/P 1. DKA 2. DM Further diagnoses and plan as above.
[2018-01-23 16:15] LABS: BUN/Creatinine Ratio 18 (6-26); Blood Urea Nitrogen 14 mg/dL (6-20); Calcium 8.6 mg/dL (8.6-10.3); Carbon Dioxide 14 mEq/L (23-29); Chloride 105 mEq/L (98-107); Glucose 89 mg/dL (70-105); Osmolality,Calculated 278 (280-300); Potassium 4.5 mEq/L (3.5-5.1); Sodium 134 mEq/L (136-145); eGFR For African Americans > 60 (> 60); eGFR For Non-African Americans > 60 (> 60)
[2018-01-23] MEDS ORDERED: Dextrose Gel 15 GM/37.5 ML TUBE PO PRN ×2 (16:51)
[2018-01-23] MEDS ORDERED: D5% in Water 1,000 ML IVC PRN (16:51)
[2018-01-24 05:23] LABS: Basophils # 0.2 K/mcL (0.0-0.2); Basophils % 1.2 %; Eosinophils # 0.1 K/mcL (0.0-0.6); Eosinophils % 0.6 %; Hemoglobin 13.8 g/dL (12.9-16.9); Lymphocytes # 2.6 K/mcL (0.6-4.6); Lymphocytes % 16.3 %; Mean Corpuscular HGB Conc 33.7 g/dL (31.6-35.5); Mean Corpuscular Hemoglobin 29.2 pg (28.0-33.3); Mean Corpuscular Volume 86.7 fL (83.0-100.0); Mean Platelet Volume 9.5 fL (9.4-12.4); Monocytes # 1.2 K/mcL (0.0-1.3); Monocytes % 7.8 %; Neutrophils # 11.2 K/mcL (1.6-8.9); Platelet Count 375 K/mcL (140-400); Red Blood Count 4.73 M/mcL (4.19-5.50); Red Cell Distribution Width 13.7 % (11.5-14.5); Segmented Neutrophils % 70.1 %
[2018-01-24 05:34] LABS: BUN/Creatinine Ratio 15 (6-26); Blood Urea Nitrogen 12 mg/dL (6-20); Calcium 9.1 mg/dL (8.6-10.3); Carbon Dioxide 14 mEq/L (23-29); Chloride 102 mEq/L (98-107); Glucose 180 mg/dL (70-105); Osmolality,Calculated 280 (280-300); Potassium 4.3 mEq/L (3.5-5.1); Sodium 133 mEq/L (136-145); eGFR For African Americans > 60 (> 60); eGFR For Non-African Americans > 60 (> 60)
[2018-01-24] MEDS: *HR* Heparin 5,000 UNIT/ML VIAL SQ SCH ×2 (06:51→17:57)
[2018-01-24] MEDS: Insulin LISPRO 300 UNITS/3 ML VIAL SQ SCH ×7 (08:04→21:10)
[2018-01-24] MEDS: Lisinopril 20 MG TABLET PO SCH (08:06)
[2018-01-24] MEDS: Nystatin SUSP 5 ML UD.LIQ PO SCH ×4 (08:06→21:08)
--- NOTE | 2018-01-24 10:59 | Internal Med Progress Note ---
<Robe Rios - Last Filed: 01/24/18 10:56> Date of Encounter: 01/24/18 Time of Encounter: 10:56 - Assessment and plan (1) High anion gap metabolic acidosis Current Visit: Yes Status: Acute Assessment and plan: Gap is 17 this morning. Patient had initially been treated for DKA which had resolved and his Reopened yesterday so he was placed back on an insulin drip. He seemed to improve nicely however his Has remained persistently open despite good blood sugar control and clinically improving. This point we will investigate further causes of high anion gap metabolic acidosis, will check serum osmolality, phosphorus, lactic acid, recheck serum and urine ketones. (2) DKA (diabetic ketoacidoses) Current Visit: Yes Status: Acute Assessment and plan: Patient initially completed insulin drip treatment for DKA which had initially resolved and patient was transferred out of the ICU. Yesterday his sugar was noted to be over 300 and on labs she was found to have an anion gap metabolic acidosis with bicarbonate 14 likely indicative the patient going back into DKA. Patient was again treated with insulin drip and his sugars greatly improved however his anion gap metabolic acidosis has persisted. At this point I am unsure if this is related to DKA or some other cause of elevated anion gap metabolic acidosis. He has been transitioned to basal bolus insulin dosing and is tolerating this well with his sugars maintaining in the 180s. Plan for further workup of anion gap metabolic acidosis as above. Qualifiers: Diabetes mellitus type: type 2 Diabetes mellitus complication detail: without coma Qualified Code(s): E11.10 - Type 2 diabetes mellitus with ketoacidosis without coma (3) Hyperkalemia Current Visit: Yes Status: Acute Assessment and plan: Secondary to DKA, resolved. Continue monitor. (4) Pharyngitis Current Visit: Yes Status: Acute Assessment and plan: Strep screen negative. Likely viral, continue supportive care Qualifiers: Pharyngitis/tonsillitis etiology: unspecified etiology Qualified Code(s): J02.9 - Acute pharyngitis, unspecified (5) Acute kidney injury Current Visit: Yes Status: Resolved Assessment and plan: Likely prerenal in the setting of DKA and severe dehydration. Resolved after aggressive fluid hydration. Continue monitor renal function. - Time Spent With Patient Total time spent is greater than 50% in coordination of care (as documented) at patient's floor/unit and/or counseling patient: - Subjective Interval history: Patient seen and examined at bedside. Patient states that he feels pretty good today. He reports sore throat that is improving and is almost resolved. He denies nausea, vomiting, abdominal pain, fever, chills, chest pain or shortness of breath. - Constitutional Vitals: Temp Pulse Resp BP Pulse Ox 97.8 F 88 16 127/70 96 01/24/18 07:16 01/24/18 07:16 01/24/18 07:16 01/24/18 07:16 01/24/18 07:16 General appearance: Present: cooperative, A&O X 3, pleasant, obese, answers questions appropriately - Respiratory Respiratory exam: Present: CTAB. Absent: rales, rhonchi, wheezes - Cardiovascular Cardiovascular exam: Present: RRR. Absent: gallop, rubs, systolic murmur - GI/Abdominal GI/Abdominal exam: Present: normal bowel sounds, soft. Absent: distended, tenderness - Extremities Exam Extremities exam: Present: warm. Absent: pedal edema, tenderness - Neurological Exam Neurological exam: Present: alert, oriented X3, no focal deficits Internal Medicine: Result - Labs CBC & Chem 7: 01/24/18 04:29 01/24/18 04:29 Labs: Short CBC 01/24/18 Range/Units 04:29 WBC 15.9 H (4.3-11.1) K/mcL Hgb 13.8 (12.9-16.9) g/dL Hct 41.0 (37.5-50.1) % Plt Count 375 (140-400) K/mcL Neutrophils # 11.2 H (1.6-8.9) K/mcL BMP 01/23/18 01/23/18 01/24/18 10:45 15:06 04:29 Sodium 131 L 134 L 133 L Potassium 4.2 4.5 4.3 Chloride 100 105 102 Carbon Dioxide 15 L 14 L 14 L BUN 16 14 12 Creatinine 0.86 0.76 0.80 Glucose 217 H 89 180 H Calcium 8.8 8.6 9.1 - ABG Interpretation ABG results: ABG ABG pH 7.26 pH Units (7.32-7.45) L 01/20/18 21:38 ABG pCO2 20 mmHg (35-45) L* 01/20/18 21:38 ABG pO2 56 mmHg (85-104) L 01/20/18 21:38 ABG O2 Saturation 85 % (95-98) L 01/20/18 21:38 Consult Discharge Plan - Plan Referrals: NONE,PCP [Primary Care Provider] - <Stacia Black - Last Filed: 01/24/18 18:17> Date of Encounter: 01/24/18 - Time Spent With Patient Total time spent is greater than 50% in coordination of care (as documented) at patient's floor/unit and/or counseling patient: - Constitutional Vitals: Temp Pulse Resp BP Pulse Ox 98 F 98 16 110/72 94 01/24/18 15:20 01/24/18 15:20 01/24/18 15:20 01/24/18 15:20 01/24/18 15:20 Internal Medicine: Result - Labs CBC & Chem 7: 01/24/18 04:29 01/24/18 04:29 Labs: Short CBC 01/24/18 Range/Units 04:29 WBC 15.9 H (4.3-11.1) K/mcL Hgb 13.8 (12.9-16.9) g/dL Hct 41.0 (37.5-50.1) % Plt Count 375 (140-400) K/mcL Neutrophils # 11.2 H (1.6-8.9) K/mcL BMP 01/24/18 04:29 Sodium 133 L Potassium 4.3 Chloride 102 Carbon Dioxide 14 L BUN 12 Creatinine 0.80 Glucose 180 H Calcium 9.1 Urine 01/24/18 Range/Units 13:12 Urine Color Yellow (Yellow) Urine Clarity Clear (Clear) Urine pH 5.5 (5.0-8.0) pH Units Ur Specific [place] > 1.030 H (1.010-1.025) Urine Protein Trace (Neg-Trace) mg/dL Urine Glucose (UA) >=1000 H (Normal) mg/dL - ABG Interpretation ABG results: ABG ABG pH 7.26 pH Units (7.32-7.45) L 01/20/18 21:38 ABG pCO2 20 mmHg (35-45) L* 01/20/18 21:38 ABG pO2 56 mmHg (85-104) L 01/20/18 21:38 ABG O2 Saturation 85 % (95-98) L 01/20/18 21:38 - Attending Attestation I saw and examined this patient independently, and my medical decision making was reviewed with the Resident on 2017. I agree with the documented findings, assessment and treatment plan as described in the progress note. II reviewed I&O's over last few days, most of time he is minus, we will give another 2 L of IV fluids bolus.
[2018-01-24] MEDS: Acetaminophen 325 MG TABLET PO PRN ×2 (12:18→23:49)
[2018-01-24] MEDS: Ondansetron 4 MG/2 ML VIAL IVP PRN (12:20)
[2018-01-24 13:25] LABS: Bilirubin,Urine Moderate (Negative); Blood,Urine Negative (Negative); Clarity,Urine Clear (Clear); Color,Urine Yellow (Yellow); Glucose,Urine (UA) >=1000 mg/dL (Normal); Ketones,Urine >=160 mg/dL (Negative); Leukocyte Esterase,Urine Negative (Negative); Nitrite,Urine Negative (Negative); PH,Urine 5.5 pH Units (5.0-8.0); Protein,Urine Trace mg/dL (Neg-Trace); Specific Gravity,Urine > 1.030 (1.010-1.025); Urobilinogen,Urine Normal (Normal)
[2018-01-24] MEDS: Insulin DETEMIR 100 UNIT/ML X5UNITS SQ SCH ×2 (14:41→21:09)
[2018-01-24] MEDS ORDERED: Ringers Solution, Lactated 1,000 ML IVC ONE (15:03)
[2018-01-24] MEDS ORDERED: Ringers Solution, Lactated 1,000 ML IVC SCH (15:30)
[2018-01-24] MEDS ORDERED: 0.9 % Sodium Chloride 1,000 ML IVC SCH (18:00)
[2018-01-24 21:20] LABS: ABG Base Excess -6 mEq/L (-2 to 3); ABG HCO3 16 mEq/L (21-27); ABG Oxygen Saturation 99 % (95-98); ABG PCO2 24 mmHg (35-45); ABG PH 7.45 pH Units (7.32-7.45); ABG PO2 114 mmHg (85-104); ABG TCO2 17 mEq/L (20-26)
[2018-01-25 05:09] LABS: Basophils # 0.2 K/mcL (0.0-0.2); Basophils % 1.5 %; Eosinophils # 0.2 K/mcL (0.0-0.6); Eosinophils % 1.2 %; Hematocrit 40.5 % (37.5-50.1); Hemoglobin 13.7 g/dL (12.9-16.9); Immature Granulocytes % 4.8 % (0-4); Lymphocytes # 3.5 K/mcL (0.6-4.6); Lymphocytes % 21.9 %; Mean Corpuscular HGB Conc 33.8 g/dL (31.6-35.5); Mean Corpuscular Hemoglobin 28.9 pg (28.0-33.3); Mean Corpuscular Volume 85.4 fL (83.0-100.0); Mean Platelet Volume 9.6 fL (9.4-12.4); Monocytes # 1.2 K/mcL (0.0-1.3); Monocytes % 7.7 %; Neutrophils # 9.9 K/mcL (1.6-8.9); Platelet Count 400 K/mcL (140-400); Red Blood Count 4.74 M/mcL (4.19-5.50); Red Cell Distribution Width 13.6 % (11.5-14.5); Segmented Neutrophils % 62.9 %
[2018-01-25] MEDS: *HR* Heparin 5,000 UNIT/ML VIAL SQ SCH (05:30)
[2018-01-25 05:32] LABS: BUN/Creatinine Ratio 15 (6-26); Blood Urea Nitrogen 11 mg/dL (6-20); Calcium 9.3 mg/dL (8.6-10.3); Carbon Dioxide 18 mEq/L (23-29); Chloride 100 mEq/L (98-107); Glucose 156 mg/dL (70-105); Osmolality,Calculated 279 (280-300); Potassium 3.5 mEq/L (3.5-5.1); Sodium 133 mEq/L (136-145); eGFR For African Americans > 60 (> 60); eGFR For Non-African Americans > 60 (> 60)
[2018-01-25] MEDS: Nystatin SUSP 5 ML UD.LIQ PO SCH ×4 (08:29→21:10)
[2018-01-25] MEDS: Lisinopril 20 MG TABLET PO SCH (08:29)
[2018-01-25] MEDS: Insulin DETEMIR 100 UNIT/ML X5UNITS SQ SCH ×2 (08:30→21:10)
[2018-01-25] MEDS: Insulin LISPRO 300 UNITS/3 ML VIAL SQ SCH ×7 (08:32→21:16)
[2018-01-25] MEDS: Acetaminophen 325 MG TABLET PO PRN ×2 (08:36→17:21)
--- NOTE | 2018-01-25 10:22 | Internal Med Progress Note ---
<Robe Rios - Last Filed: 01/25/18 10:20> Date of Encounter: 01/25/18 Time of Encounter: 10:20 - Assessment and plan (1) High anion gap metabolic acidosis Current Visit: Yes Status: Acute Assessment and plan: Gap is 15 this morning which is improved from yesterday. Patient had initially been treated for DKA which had resolved and his reopened yesterday so he was placed back on an insulin drip. He seemed to improve nicely however his Has remained persistently open despite good blood sugar control and clinically improving. This morning he is improved after increasing his insulin. Ultimately this is likely related to his diabetes and poor compliance with both his treatment regimen and diet. I strongly encouraged the patient to increase his oral intake as well as water and avoid excess sugars, carbs, and sugary drinks. Patient verbalized understanding but it should be noted that the patient has been found to be drinking root beer throughout his stay and his continues to bring him in root beer. (2) DKA (diabetic ketoacidoses) Current Visit: Yes Status: Acute Assessment and plan: Patient initially completed insulin drip treatment for DKA which had initially resolved and patient was transferred out of the ICU. An sugar continue to improve. We will continue to titrate up basal and bolus insulin. Patient remains to have inadequate oral intake. Will give maintenance fluids. Qualifiers: Diabetes mellitus type: type 2 Diabetes mellitus complication detail: without coma Qualified Code(s): E11.10 - Type 2 diabetes mellitus with ketoacidosis without coma (3) Hyperkalemia Current Visit: Yes Status: Acute Assessment and plan: Secondary to DKA, resolved. Continue monitor. (4) Pharyngitis Current Visit: Yes Status: Acute Assessment and plan: Strep screen negative. Likely viral, continue supportive care. Mild leukocytosis with significant lymphocytes, we will check respiratory infection panel Qualifiers: Pharyngitis/tonsillitis etiology: unspecified etiology Qualified Code(s): J02.9 - Acute pharyngitis, unspecified (5) Acute kidney injury Current Visit: Yes Status: Resolved Assessment and plan: Likely prerenal in the setting of DKA and severe dehydration. Resolved after aggressive fluid hydration. Continue monitor renal function. - Time Spent With Patient Total time spent is greater than 50% in coordination of care (as documented) at patient's floor/unit and/or counseling patient: - Subjective Interval history: Patient seen and examined at bedside. Patient states that he feels pretty good today. He reports sore throat that is improving and is almost resolved, although he does report it is "scratchy" and this is causing him not to eat well. He reports he is trying to increase his oral intake. He denies nausea, vomiting, abdominal pain, fever, chills, chest pain or shortness of breath. - Constitutional Vitals: Temp Pulse Resp BP Pulse Ox 97.8 F 88 18 130/89 96 01/25/18 07:26 01/25/18 07:26 01/25/18 07:26 01/25/18 07:26 01/25/18 07:26 General appearance: Present: cooperative, A&O X 3, pleasant, obese, answers questions appropriately - Respiratory Respiratory exam: Present: CTAB. Absent: rales, rhonchi, wheezes - Cardiovascular Cardiovascular exam: Present: tachycardia. Absent: gallop, irregular rhythm, rubs, systolic murmur - GI/Abdominal GI/Abdominal exam: Present: normal bowel sounds, soft. Absent: distended, tenderness - Extremities Exam Extremities exam: Present: warm. Absent: pedal edema, tenderness - Neurological Exam Neurological exam: Present: alert, CN II-XII intact, oriented X3, no focal deficits Internal Medicine: Result - Labs CBC & Chem 7: 01/25/18 04:18 01/25/18 04:18 Labs: Short CBC 01/25/18 Range/Units 04:18 WBC 15.8 H (4.3-11.1) K/mcL Hgb 13.7 (12.9-16.9) g/dL Hct 40.5 (37.5-50.1) % Plt Count 400 (140-400) K/mcL Neutrophils # 9.9 H (1.6-8.9) K/mcL BMP 01/25/18 04:18 Sodium 133 L Potassium 3.5 Chloride 100 Carbon Dioxide 18 L BUN 11 Creatinine 0.71 Glucose 156 H Calcium 9.3 Urine 01/24/18 Range/Units 13:12 Urine Color Yellow (Yellow) Urine Clarity Clear (Clear) Urine pH 5.5 (5.0-8.0) pH Units Ur Specific [place] > 1.030 H (1.010-1.025) Urine Protein Trace (Neg-Trace) mg/dL Urine Glucose (UA) >=1000 H (Normal) mg/dL - ABG Interpretation ABG results: ABG ABG pH 7.45 pH Units (7.32-7.45) 01/24/18 21:17 ABG pCO2 24 mmHg (35-45) L 01/24/18 21:17 ABG pO2 114 mmHg (85-104) H 01/24/18 21:17 ABG O2 Saturation 99 % (95-98) H 01/24/18 21:17 Consult Discharge Plan - Plan Referrals: NONE,PCP [Primary Care Provider] - <Stacia Black - Last Filed: 01/25/18 16:12> Date of Encounter: 01/25/18 - Time Spent With Patient Total time spent is greater than 50% in coordination of care (as documented) at patient's floor/unit and/or counseling patient: - Constitutional Vitals: Temp Pulse Resp BP Pulse Ox 97.9 F 106 18 103/73 95 01/25/18 15:56 01/25/18 15:56 01/25/18 15:56 01/25/18 15:56 01/25/18 15:56 Internal Medicine: Result - Labs CBC & Chem 7: 01/25/18 04:18 01/25/18 04:18 Labs: Short CBC 01/25/18 Range/Units 04:18 WBC 15.8 H (4.3-11.1) K/mcL Hgb 13.7 (12.9-16.9) g/dL Hct 40.5 (37.5-50.1) % Plt Count 400 (140-400) K/mcL Neutrophils # 9.9 H (1.6-8.9) K/mcL BMP 01/25/18 04:18 Sodium 133 L Potassium 3.5 Chloride 100 Carbon Dioxide 18 L BUN 11 Creatinine 0.71 Glucose 156 H Calcium 9.3 - ABG Interpretation ABG results: ABG ABG pH 7.45 pH Units (7.32-7.45) 01/24/18 21:17 ABG pCO2 24 mmHg (35-45) L 01/24/18 21:17 ABG pO2 114 mmHg (85-104) H 01/24/18 21:17 ABG O2 Saturation 99 % (95-98) H 01/24/18 21:17 - Attending Attestation I saw and examined this patient independently, and my medical decision making was reviewed with the Resident on 2017. I agree with the documented findings, assessment and treatment plan as described in the progress note or discharge summary.
[2018-01-25] MEDS: Ringers Solution, Lactated 1,000 ML IVC SCH ×2 (12:17→21:10)
[2018-01-25 16:49] LABS: Adenovirus Not Detected (Not Detect); Bordetella Pertussis Not Detected (Not Detect); Chlamydophila pneumoniae Not Detected (Not Detect); Coronavirus 229E Not Detected (Not Detect); Coronavirus HKU1 Not Detected (Not Detect); Coronavirus NL63 Not Detected (Not Detect); Coronavirus OC43 Not Detected (Not Detect); Human Metapneumovirus Not Detected (Not Detect); Human Rhinovirus/Enterovirus Not Detected (Not Detect); Influenza A Subtype 2009 H1 Not Detected (Not Detect); Influenza A Untypeable Not Detected (Not Detect); Influenza B Not Detected (Not Detect); Mycoplasma pneumoniae Not Detected (Not Detect); Parainfluenza Virus 1 Not Detected (Not Detect); Parainfluenza Virus 2 Not Detected (Not Detect); Parainfluenza Virus 3 Not Detected (Not Detect); Parainfluenza Virus 4 Not Detected (Not Detect); Respiratory Syncytial Virus Not Detected (Not Detect)
[2018-01-25] MEDS: Ondansetron 4 MG/2 ML VIAL IVP PRN (17:22)
--- NOTE | 2018-01-25 18:10 | Electrocardiograph Report ---
[place] [id number] Test Date: 2018-01-25 Pat Name: James Najera Department: 111 Room: [facility] Gender: M Mailroom Personnel: [id number] : [id number] Requested By: MAYO Marin Order Number: [id number] Reading MD: Franck Mccoy Measurements Intervals [place] Rate: 114 P: 52 CT: 145 QRS: 21 QRSD: 94 T: 55 QT: 320 QTc: 388 Interpretive Statements SINUS TACHYCARDIA Electronically Signed On 01-25-2018 18:09:02 EDT by Franck Mccoy
[2018-01-26] MEDS: Ondansetron 4 MG/2 ML VIAL IVP PRN (03:55)
[2018-01-26 05:36] LABS: Hemoglobin 13.5 g/dL (12.9-16.9); Lymphocytes # 4.3 K/mcL (0.6-4.6); Mean Corpuscular HGB Conc 33.8 g/dL (31.6-35.5); Mean Corpuscular Volume 85.8 fL (83.0-100.0); Mean Platelet Volume 9.5 fL (9.4-12.4); Platelet Count 429 K/mcL (140-400); Red Blood Count 4.66 M/mcL (4.19-5.50); Red Cell Distribution Width 13.5 % (11.5-14.5)
[2018-01-26 05:59] LABS: BUN/Creatinine Ratio 16 (6-26); Blood Urea Nitrogen 11 mg/dL (6-20); Carbon Dioxide 20 mEq/L (23-29); Chloride 100 mEq/L (98-107); Glucose 172 mg/dL (70-105); Osmolality,Calculated 279 (280-300); Potassium 3.7 mEq/L (3.5-5.1); Sodium 133 mEq/L (136-145); eGFR For African Americans > 60 (> 60); eGFR For Non-African Americans > 60 (> 60)
[2018-01-26 06:04] LABS: Eosinophils # 0.3 K/mcL (0.0-0.6); Monocytes # 0.7 K/mcL (0.0-1.3); Platelet Estimate Increased (Normal)
[2018-01-26 06:05] LABS: Reactive Lymphocytes Present (Not Present)
[2018-01-26] MEDS: *HR* Enoxaparin 40 MG/0.4 ML SYRINGE SQ SCH (06:11)
[2018-01-26] MEDS: Lisinopril 20 MG TABLET PO SCH (09:04)
[2018-01-26] MEDS: Nystatin SUSP 5 ML UD.LIQ PO SCH ×4 (09:04→21:56)
[2018-01-26] MEDS: Insulin LISPRO 300 UNITS/3 ML VIAL SQ SCH ×6 (09:06→21:56)
[2018-01-26] MEDS: Insulin DETEMIR 100 UNIT/ML X5UNITS SQ SCH (09:09)
--- NOTE | 2018-01-26 12:22 | Discharge Summary ---
- NOTES TO OUTPATIENT PROVIDER Notes to Outpatient Provider: follow up with PCP for better DM control Orders not resulted at time of discharge: Pending orders Date of Encounter: 01/26/18 Time of Encounter: 12:20 - Discharge Diagnosis (1) DKA (diabetic ketoacidoses) Priority: Primary Status: Resolved Qualifiers: Diabetes mellitus type: type 2 Diabetes mellitus complication detail: without coma Qualified Code(s): E11.10 - Type 2 diabetes mellitus with ketoacidosis without coma (2) Obesity (BMI 30-39.9) Priority: Secondary Status: Chronic (3) Hyperkalemia Priority: Secondary Status: Resolved (4) Pharyngitis Priority: Secondary Status: Acute Assessment and Plan: discharge on augmentin Qualifiers: Pharyngitis/tonsillitis etiology: unspecified etiology Qualified Code(s): J02.9 - Acute pharyngitis, unspecified (5) Acute kidney injury Priority: Secondary Status: Resolved (6) DVT prophylaxis Priority: Secondary Status: Acute (7) High anion gap metabolic acidosis Priority: Secondary Status: Resolved Hospital course: Mr. Najera is a 37 year old male patient with a history of diabetes mellitus who presented to the ER with complaints of sore throat along with nausea. He has been feeling sick for about 2-3 days now and was drinking a lot of orange juice and soda at this with his throat. He has been having increased urination and has also been feeling nauseated. He denies any fever or chills. Patient was admitted on 01/20/2018 for DKA, he was in ICU for insulin drip and severe acidosis. He ,moved ,out of ICU on 01/23 ater DKA improved. An sugar continue to improve. BG is better controlled on detmir 20 units BID, and lispro 15 unit premeal, he will resume metformin at ldischarge, meal lisipro reduced to 10 units. Patient is given scripts for insulin. discussed with nurse and case consultant for no insurance assiant. Patient is going to follow up with PCP. He mhas persistent leukocytosis and clinical symptoms of sinusitis, will give augmentin for 10 days Discharge discussed with: patient Time spent discussing smoking cessation with patient: more than 10 minutes - Time Spent with Patient Total time spent providing and/or coordinating discharge services: Greater than 30 minutes - Discharge Medications Prescriptions: Amoxicillin/Clavulanate [Augmentin] 875 mg PO BIDWM #20 tablet Insulin DETEMIR [Levemir] 20 unit SQ BID 30 Days #5 vial Insulin LISPRO [HumaLOG] 10 units SQ TIDWM #7 vial Insulin LISPRO [Admelog] 100 unit SQ 3-4XD 30 Days #1 vial Lisinopril [Zestril] 20 mg PO DAILY #30 tablet Metformin HCl [Glucophage] 1,000 mg PO BID #120 tablet Syringe W-Needle,Disposab,1 ml [Easy Touch] 1 each SQ 4-8XD #500 disp.syrin Home Medications: Amoxicillin/Clavulanate [Augmentin] 875 mg PO BIDWM #20 tablet 01/26/18 [Rx] Insulin DETEMIR [Levemir] 20 unit SQ BID 30 Days #5 vial 01/26/18 [Rx] Insulin LISPRO [Admelog] 100 unit SQ 3-4XD 30 Days #1 vial 01/26/18 [Rx] Insulin LISPRO [HumaLOG] 10 units SQ TIDWM #7 vial 01/26/18 [Rx] Lisinopril [Zestril] 20 mg PO DAILY #30 tablet 01/26/18 [Rx] Metformin HCl [Glucophage] 1,000 mg PO BID #120 tablet 01/26/18 [Rx] Syringe W-Needle,Disposab,1 ml [Easy Touch] 1 each SQ 4-8XD #500 disp.syrin 05/07 [Rx] Allergies/Adverse Reactions: 3 Allergy/AdvReac Type Severity Reaction Status Date / Time No Known Allergies Allergy Verified 01/20/18 15:53 Date of admission: 01/20/18 19:51 Primary care physician: PCP NONE Consults: 01/20/18 23:41 Consult to Pulmonology [CONS] Routine Consulting Provider: [facility] Reason for Consult: ICU care- DKA/ Sepsis/ shock Call Completed: Yes 01/23/18 10:23 Consult for Pharmacy Education [CONS] Routine Reason for Consult: New insulin start Call Completed: Yes Anticipated date of discharge: 01/26/18 - Constitutional Vitals: Temp Pulse Resp BP Pulse Ox 97.5 F L 98 18 121/62 97 01/26/18 07:14 01/26/18 07:14 01/26/18 07:14 01/26/18 07:14 01/26/18 07:14 General appearance: Present: cooperative, A&O X 3, pleasant, obese, answers questions appropriately Exam: CONSTITUTIONAL: patient appears as an age appropriate male in no acute distress. EYES Clear sclerae, bilateral pupils are equal, reactive to light. EMOI. RESPIRATORY: No accessory muscle use, bilateral clear to auscultation, no wheezing, no crackles/rales. CARDIOVASCULAR: Regular heart rate, normal S1 and S2, no murmurs GASTROINTESTINAL: bowel sounds present, soft, no tenderness. MUSCULOSKELETAL: Joints in normal range of motion, no clubbing, no edema, no cyanosis. Bilateral peripheral pulses 2+. NEUROLOGIC: CN II to XII are grossly intact, no focal neurological deficit. - Patient Status Disposition: Home, Self-Care Condition: Good Functional capacity at discharge: independent ambulation Overall status at discharge: patient is back to baseline - Discharge Instructions Follow Up With: NONE,PCP [Primary Care Provider] - - Diet and Activity Activity: increase activity as tolerated Diet: diabetic diet
--- NOTE | 2018-01-26 17:19 | Event Note ---
Date of Encounter: 01/26/18 Time of Encounter: 17:11 Patient does not have insurance, he cannot afford detmir and lispro. I discussed with pharmacy, change it to Novolin N 25 units twice a day, and start his home metformin 1000 mg twice a day. Novolin N is only $25 per vial at [facility]. if patient sugar is well controlled by Novolin N 25 units BID, and he can be discharged on Novolin N 25 units twice a day tomorrow. I order 2 AM blood glucose to check if he gets hypoglycemia from mixed short acting.
[2018-01-26] MEDS: *HR* Metformin 500 MG TABLET PO SCH (18:26)
[2018-01-26] MEDS: Insulin NPH 100 UNIT/ML (x5UNIT) SQ SCH (21:56)
[2018-01-27] MEDS: *HR* Enoxaparin 40 MG/0.4 ML SYRINGE SQ SCH (05:56)
[2018-01-27 07:15] VITALS: BP 118/70
[2018-01-27 07:37] LABS: Hematocrit 39.6 % (37.5-50.1); Hemoglobin 13.5 g/dL (12.9-16.9); Mean Corpuscular HGB Conc 34.1 g/dL (31.6-35.5); Mean Corpuscular Hemoglobin 29.1 pg (28.0-33.3); Mean Corpuscular Volume 85.3 fL (83.0-100.0); Mean Platelet Volume 9.5 fL (9.4-12.4); Platelet Count 469 K/mcL (140-400); Red Blood Count 4.64 M/mcL (4.19-5.50); Red Cell Distribution Width 13.7 % (11.5-14.5)
[2018-01-27 07:52] LABS: BUN/Creatinine Ratio 13 (6-26); Blood Urea Nitrogen 8 mg/dL (6-20); Calcium 9.1 mg/dL (8.6-10.3); Carbon Dioxide 22 mEq/L (23-29); Chloride 100 mEq/L (98-107); Glucose 168 mg/dL (70-105); Osmolality,Calculated 280 (280-300); Potassium 3.4 mEq/L (3.5-5.1); Sodium 134 mEq/L (136-145); eGFR For African Americans > 60 (> 60); eGFR For Non-African Americans > 60 (> 60)
[2018-01-27 08:07] LABS: Monocytes # 1.8 K/mcL (0.0-1.3)
[2018-01-27] MEDS: Lisinopril 20 MG TABLET PO SCH (09:38)
[2018-01-27] MEDS: *HR* Metformin 500 MG TABLET PO SCH (09:38)
[2018-01-27] MEDS: Insulin NPH 100 UNIT/ML (x5UNIT) SQ SCH (09:39)
[2018-01-27] MEDS: Nystatin SUSP 5 ML UD.LIQ PO SCH (09:39)
[2018-01-27] MEDS: Insulin LISPRO 300 UNITS/3 ML VIAL SQ SCH (09:41)
== END 2018-01-27 13:26 | disposition home or self-care (01) | DRG 637 ==
LOC: EMEROO 15:38 → SUATTDRO 19:51 → ICNU 19:51 → 2NENU 01-22 13:50
PROVIDERS: ADMIT Internal Medicine; ATTEND Internal Medicine